=== PATIENT | female | born 1945 | race African-American/Black ===

== ENCOUNTER 2016-11-11 16:35 | Inpatient (IN) ==
[2016-11-11 17:07] LABS: Basophils # 0.1 10*3/uL (0.0-0.2); Basophils % 0.8 % (0.0-0.8); Eosinophils # 0.1 10*3/uL (0.0-0.87); Eosinophils % 0.5 % (0.00-10.9); Hematocrit 44.4 VOL% (35.7-47.0); Hemoglobin 14.5 GM/DL (12.0-16.0); Immature Granulocytes % 0.2 %; Immature Granulocytes Absolute 0.02 #; Lymphocytes # 1.9 10*3/uL (1.4-4.0); Lymphocytes % 20.8 % (21.3-54.2); Mean Corpuscular HGB Conc 32.7 GM/DL (32-36); Mean Corpuscular Hemoglobin 26 PG (27-34); Mean Corpuscular Volume 80.4 FL (87-102); Mean Platelet Volume 10.9 FL (9.6-12.0); Monocytes # 0.9 10*3/uL (0.11-0.8); Monocytes % 9.7 % (1.7-12.7); Neutrophils # 6.2 10*3/uL (1.4-7.4); Platelet Count 289 T/CUMM (130-400); Red Blood Count 5.52 MC/CUMM (3.8-5.5); Red Cell Distribution Width 13.4 % (9.3-17.3); White Blood Count 9.1 T/CUMM (4-12)
[2016-11-11 17:23] LABS: Lactic Acid 1.2 MMOL/L (0.4-2.0)
[2016-11-11 17:24] LABS: Albumin 3.7 G/DL (3.4-5.0); Bilirubin,Total 1.3 MG/DL (0.2-1.0); Calcium 9.2 MG/DL (8.5-10.1); Magnesium 2.1 MG/DL (1.8-2.4); Osmolality,Calculated 272.7 MOS/KG (273-304); Potassium 3.4 MMOL/L (3.5-5.1)
[2016-11-11] MEDS ORDERED: SODIUM CHLORIDE 0.9% 1,000 ML IV STA (17:44)
[2016-11-11] MEDS ORDERED: HYDROCORTISONE 100 MG VIAL IV STA (17:50)
--- NOTE | 2016-11-11 18:00 | XRay Report ---
History: Shortness of breath and fever Date: 11/11/2016 Study: Chest x-ray AP portable Comparison exam: Chest x-ray July 15, 2016 There is stable mild cardiomegaly. The mediastinal contour is unchanged. The pulmonary vasculature is not engorged. There is some mild atelectasis/infiltrate in the left lower lobe. There is a small left pleural effusion. The lungs are generally clear. Osseous structures are unchanged. Impression: Mild left lower lobe atelectasis/infiltrate. Consider pneumonia. PROCEDURE INTERPRETED AT [facility] DEPARTMENT OF RADIOLOGY Final Report Signed by: Dr. Tamica Ag
--- NOTE | 2016-11-11 18:07 | Emergency Department Note ---
Alberto Mancia Hilary, am scribing for, and in the presence of, Wang Mitchell MD 17: 57. Paula Mancia James D, MD, personally performed the services described in this documentation, ascribed by Kimberley Dominguez in my presence, and it is both accurate and complete [id number] . Arrival - Arrival Chief Complaint: Fever Stated Complaint: fever, talking out head, ED Nursing Triage Note: Pt's family reports pt has been running a fever and confusion since yesterday. Pt stepped on nail Wednesday afternoon with her right foot. Mode of Arrival: Wheelchair Limitations: No Limitations Source: Patient, RN Notes Reviewed - History of Present Illness HPI Narrative: Pt is a 71 y/o black female presenting to the ED with c/o fever and confusion which onset yesterday. Pts family is in the room and states she stepped on a nail and got a tetanus shot yesterday. 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 No other complains or problems stated in the ED. Onset (ago): day(s) (1) Allergies/Adverse Reactions: Allergies Allergy/AdvReac Type Severity Reaction Status Date / Time aspirin AdvReac Palpitation Verified 11/11/16 16:47 s Review of System - Review of System 12 point system: reviewed and no additional remarkable complaints except as stated - Review of System Constitutional: Present: fever Cardiovascular: Absent: chest pain Gastrointestinal: Absent: abdominal pain Genitourinary female: Absent: dysuria Neurological: Present: confusion. Absent: headache Medical,Surgical,& Family Hx - Medical History Cardio: History of: Hypertension Endocrine: History of: Thyroid Disorder, Endocrine Problems (jorge's disease) - Social History Smoking Status: Former smoker Exam Physical Examination: GENERAL: This is a well-nourished, well-developed female in no apparent distress. VITAL SIGNS: Temperature: 101.1 Pulse: 102 Respiratory: 20 Blood Pressure: 83 /34 O2Sat: 96 HEENT: Head is normocephalic and atraumatic. Pupils are equally round and reactive to light. Extraocular movement are intact. Oropharynx is benign with moist mucous membranes. Arcus Senilis bilaterally NECK: Neck is soft and supple without tenderness. There are no masses. There is no lymphadenopathy. LUNGS: Lungs are clear to auscultation bilaterally. Chest rises symmetrically. There is no chest wall tenderness. CV: Heart is regular rate and rhythm without murmurs, rubs, or gallops. ABDOMEN: Abdomen is soft, non-tender to palpation. There are no abnormal masses palpated. There is no organomegaly. Bowel sounds are present and active. SKIN: Skin is warm and dry. No rash. EXTREMITIES: Patient has full range of motion without tenderness. There is no pedal edema. NEUROLOGIC: Awake, alert, and oriented x4. Cranial nerves II through XII are grossly intact. There are no motorsensory deficits. PSYCHIATRIC: Normal affect. Normal mood. Vital Signs: Vital Signs Temperature 99.0 F 11/11/16 17:37 Pulse Rate 82 11/11/16 17:37 Respiratory Rate 20 11/11/16 17:37 Blood Pressure 54/42 11/11/16 17:37 O2 Sat by Pulse Oximetry 96 11/11/16 17:37 Results - Labs CBC & BMP: 11/11/16 16:50 11/11/16 16:50 Lab Results: I have reviewed the patients labs Labs: Laboratory Tests 11/11/16 11/11/16 16:50 16:50 WBC 9.1 RBC 5.52 H Hgb 14.5 Hct 44.4 MCV 80.4 L MCH 26 L Lymph % (Auto) 20.8 L [place] # (Auto) 0.9 H Potassium 3.4 L Calculated Osmolality 272.7 L Total Bilirubin 1.30 H ALT 9 L C-Reactive Protein 6.46 H - Diagnostic Findings Procedure: Chest x-ray: image reviewed by me (No infiltrates, no pleural effusions), CT: image reviewed by me (CT head: No acute intracranial lesion or hemorrhage.) Disposition Clinical Impression: Sepsis, Addisons disease, Hypotension, Headache Case discussed with: patient Condition: Stable Time of Disposition: 18:09
[2016-11-11] MEDS ORDERED: cefTRIAXone 1,000 MG in SODIUM CHLORIDE 0.9% 100 ML IV STA (18:09)
[2016-11-11] MEDS ORDERED: ACETAMINOPHEN 500 MG TABLET PO STA (18:10)
[2016-11-11] MEDS ORDERED: HYDROCORTISONE 100 MG VIAL ONE (18:15)
[2016-11-11 18:16] LABS: Sedimentation Rate-Westergren 23 MM/HR (0-30)
--- NOTE | 2016-11-11 18:34 | CT Report ---
History: Acute mental status changes. Fever. Confusion Date: 11/11/2016 Study: CT head without contrast Comparison exam: CT head April 19, [address] sections were obtained through the head without IV contrast. This CT exam was performed using one or more the following dose reduction techniques: Automated exposure control, adjustment of the MA and/or KV according to patient size, or use of iterative reconstruction technique. The ventricles are midline in position without evidence of hydrocephalus. There is no mass or parenchymal hemorrhage. There is no gross CT evidence of acute cortical stroke. There is no extra-axial hematoma. There is no acute abnormality of the calvarium. The partially visualized mastoid air cells and paranasal sinuses are generally clear. There is mild distal carotid artery calcification. Impression: No acute intracranial process compared to the previous study. PROCEDURE INTERPRETED AT [facility] DEPARTMENT OF RADIOLOGY Final Report Signed by: Dr. Tamica Ag
[2016-11-11] MEDS ORDERED: ONDANSETRON 4 MG/2 ML VIAL IV PRN (18:50)
[2016-11-11] MEDS ORDERED: ACETAMINOPHEN 500 MG TABLET ONE (18:50)
[2016-11-11] MEDS ORDERED: ACETAMINOPHEN 325 MG TABLET PO PRN (18:50)
[2016-11-11] MEDS ORDERED: cefTRIAXone 1,000 MG VIAL ONE (18:50)
--- NOTE | 2016-11-11 18:55 | Hospitalist History & Physical ---
Assessment and Plan - Time spent with patient Time spent with patient: Greater than 30 minutes (1) Pneumonia Status: Acute Assessment and plan: CXR reveals infiltrates in left lower lobe. Rocephin IV. Current Visit: Yes (2) Addisons disease Status: Acute Current Visit: Yes (3) Hypotension Status: Acute Assessment and plan: IV fluids in ED. Patient responded well. Will admit patient to med/surg floor. Hold antihypertensives. Current Visit: Yes History of Present Illness Chief complaint: Fever History of present illness: Ms. Jiménez is a 71 year old female with a history significant for Ashland's disease, emphysema, hypertension who presents to the ED with fever and decreased appetite x 2 days. Patient reports that she stepped on a rusted nail Wednesday and received a tetanus shot on Wednesday when she started feeling "bad". She is extremely drowsy, has a decreased appetite and thirst, and has been "talking out of her head" per the family at bedside. Patient states that she is cold and can't seem to get warm. She has had a fever since yesterday. Her says that he has been "bathing her in rubbing alcohol" to reduce the fever. On admission, her temp was 101 and she was hypotensive with her pressure 54-83/34-42. She was given Tylenol 1000mg x2, rocephin 1g and a liter of IVF in the ER. On exam, the patient was still cold, but had responded well to the tylenol and IVF. She denies pain, headache, blurry vision, chest pain, abdominal pain, syncope. She will be admitted to the hospital medicine service for further evaluation and treatment. She is a full code. Case has been discussed with Dr. Vargas. Allergies Allergy/AdvReac Type Severity Reaction Status Date / Time aspirin AdvReac Palpitation Verified 11/11/16 16:47 s Medical,Surgical,& Family Hx - Medical History Cardio: History of: Hypertension Endocrine: History of: Thyroid Disorder, Endocrine Problems (jorge's disease) - Social History Smoking Status: Former smoker Frequency of Alcohol Use: Rarely Type of Drug Use: None Marital Status: Lives With:: Spouse Functional capacity: independent ambulation - Constitutional Constitutional: Present: chills, daytime sleepiness, fever(s), weakness. Absent : headache(s) - EENT Eyes: Absent: blurry vision, loss of vision Ears: Absent: decreased hearing, ear pain Nose, mouth and throat: Absent: headache(s), neck mass - Cardiovascular Cardiovascular: Absent: chest pain at rest, chest pain with activity, dyspnea, edema - Respiratory Respiratory: Present: wheezing. Absent: cough, dyspnea - Gastrointestinal Gastrointestinal: Absent: abdominal pain, diarrhea, nausea, vomiting - Genitourinary Genitourinary: Absent: difficulty urinating, flank pain - Musculoskeletal Musculoskeletal: Absent: arthralgias, back pain - Neurological Neurological: Absent: abnormal gait, abnormal speech, numbness - Psychiatric Psychiatric: Absent: anxiety, depression - Endocrine Endocrine: Present: cold intolerance, fatigue - Hematologic/Lymphatic Hematologic/Lymphatic: Absent: easy bleeding, easy bruising Exam - Constitutional Vitals: Period Temp Pulse Resp BP Sys/Hernández Pulse Ox Last 24 Hr 99.0 F-101.1 F 82-102 20-20 54-83/34-42 96-96 Exam: General appearance: overweight, no acute distress - Head Head exam: Present: normocephalic, atraumatic - Eye Eye exam: Present: EOMI. Absent: conjunctival injection, nystagmus Pupils: Present: SHARIF, normal accommodation - ENT ENT exam: Present: normal exam, normal external ear exam - Neck Neck exam: Present: normal inspection. Absent: lymphadenopathy, tenderness, thyromegaly - Respiratory Respiratory exam: Present: decreased breath sounds, wheezes. Absent: rales, rhonchi - Cardiovascular Cardiovascular exam: Present: regular rate and rhythm. Absent: carotid bruit, gallop, rubs - GI/Abdominal GI/Abdominal exam: Present: normal bowel sounds. Absent: ascites, distended, mass - Extremities Exam Extremities exam: Present: normal inspection, normal capillary refill. Absent: edema - Back Exam Back exam: Absent: CVA tenderness (L), CVA tenderness (R) - Neurological Exam Neurological exam: Present: alert, lethargic - Psychiatric Psychiatric exam: Present: normal affect, normal mood - Skin Skin exam: Present: normal color, warm, dry Results - Labs CBC & BMP: 11/11/16 16:50 11/11/16 16:50 Lab Results: I have reviewed the past 24 hour labs
[2016-11-11] MEDS ORDERED: ALBUTEROL 2.5 MG/3 ML NEB RESP TX PRN (18:57)
[2016-11-11 19:03] LABS: Apearance,Urine CLEAR (Clear); Bilirubin,Urine Negative (Negative); Blood, Urine Negative (Negative); Glucose,Urine (UA) Negative (Negative); Hyaline Casts,Urine 3 /LPF (0-3); Ketones,Urine Negative (Negative); Mucus,Urine Occasional /LPF (Occasional); Nitrite,Urine Negative (Negative); Protein,Urine Negative; RBC,Urine 2 /HPF (0-4); Squamous Epithelial Cell,Urine Occasional /HPF (0-10); Urine Color Yellow (Yellow); Urine Urobilinogen < 2.0 EU/DL (0.2-1.0); WBC,Urine 1 /HPF (0-6)
[2016-11-11] MEDS ORDERED: AZITHROMYCIN 500 MG VIAL IV ONE (21:21)
[2016-11-11] MEDS: ENOXAPARIN 40 MG/0.4 ML SYRINGE SUBCUT SCH (21:44)
[2016-11-11] MEDS: AZITHROMYCIN INJ 500 MG in SODIUM CHLORIDE 0.9% 250 ML IV SCH (21:45)
[2016-11-11] MEDS: SODIUM CHLORIDE 0.9% 1,000 ML IV SCH (21:45)
[2016-11-11] MEDS: ALBUTEROL/IPRATROPIUM 3 ML NEB RESP TX SCH (21:58)
[2016-11-11] MEDS ORDERED: POTASSIUM CHLORIDE 20 MEQ TABLET PO ONE (22:00)
[2016-11-11] MEDS ORDERED: ONDANSETRON 4 MG/2 ML VIAL ONE (23:19)
[2016-11-12] MEDS: ALBUTEROL/IPRATROPIUM 3 ML NEB RESP TX SCH ×4 (01:12→20:28)
[2016-11-12 04:25] LABS: Basophils % 0.4 % (0.0-0.8); Hematocrit 34.7 VOL% (35.7-47.0); Hemoglobin 11.1 GM/DL (12.0-16.0); Immature Granulocytes % 0.3 %; Immature Granulocytes Absolute 0.02 #; Lymphocytes # 1.2 10*3/uL (1.4-4.0); Lymphocytes % 14.8 % (21.3-54.2); Mean Corpuscular Hemoglobin 26 PG (27-34); Mean Corpuscular Volume 82.6 FL (87-102); Mean Platelet Volume 11.3 FL (9.6-12.0); Monocytes # 0.5 10*3/uL (0.11-0.8); Monocytes % 6.7 % (1.7-12.7); Neutrophils % 77.8 % (38.7-73.9); Platelet Count 203 T/CUMM (130-400); Red Cell Distribution Width 13.7 % (9.3-17.3); White Blood Count 7.8 T/CUMM (4-12)
[2016-11-12] MEDS: SODIUM CHLORIDE 0.9% 1,000 ML IV SCH (05:01)
[2016-11-12 07:01] LABS: Calcium 6.2 MG/DL (8.5-10.1); Osmolality,Calculated 288.4 MOS/KG (273-304); Potassium 2.6 MMOL/L (3.5-5.1)
[2016-11-12] MEDS: PANTOPRAZOLE 40 MG TABLET PO SCH (09:24)
--- NOTE | 2016-11-12 09:26 | Hospitalist Progress Note ---
Assessment and Plan (1) Addisons disease Status: Chronic Assessment and plan: Patient apparently had an acute febrile illness with radiographic evidence suggesting early pneumonitis. The remainder of her symptoms are strongly suggestive of inadequate adrenal reserve. This impression is reinforce by rapid induction of electrode abnormalities associated with normal saline volume administration. We will go ahead with the initiation of hydrocortisone, potassium replacement, reduction in chloride load, and hopefully review of her home medications will be available later today. Current Visit: Yes (2) Pneumonia Status: Acute Assessment and plan: Apparent new left lower lobe infiltrate. Current Visit: Yes Hospitalist: Subjective Interval history: 71-year-old female who several days ago stepped on a nail. She received a tetanus shot the next day she noticed high fever a lot of pain at the injection site in her right shoulder and became progressively weaker and more confused. She was found to be hypotensive by her family. She carries a diagnosis of Choudrant's disease. Home medications are currently unavailable for review. She received normal saline rehydration in the emergency department developing a low calcium level and a decrease in potassium in the setting of hypernatremia and low normal CO2 content. Subsequent to admission her vital signs been stable and she has been afebrile she feels much better today. She has no recent complaints relative to the foot injury has had no cough or sputum production. Her admitting chest x-ray shows haziness in the area of the left diaphragm and she has been initiated on antibiotics for community-acquired pneumonia. Exam - Constitutional Vitals: Period Temp Pulse Resp BP Sys/Hernández Pulse Ox Last 24 Hr 98.7 F-99.8 F 70-91 14-20 97-135/72-95 2-100 General appearance: normal weight - Respiratory Respiratory exam: Present: clear to auscultation bilaterally. Absent: rales, rhonchi, wheezes - Cardiovascular Cardiovascular exam: Present: regular rate and rhythm - GI/Abdominal GI/Abdominal exam: Present: normal bowel sounds. Absent: distended, tenderness - Extremities Exam Extremities exam: Absent: edema - Neurological Exam Neurological exam: Present: alert, oriented X3 Results - Labs CBC & BMP: 11/12/16 Unknown 11/12/16 04:00 Labs: Calcium level 6.2 Urinalysis negative - Diagnostic Findings Procedure: Chest x-ray: image reviewed by me (Loss of detail left hemidiaphragm soft infiltrate)
[2016-11-12] MEDS: HYDROCORTISONE 100 MG VIAL IV SCH ×2 (10:59→17:18)
[2016-11-12] MEDS: POTASSIUM CHLORIDE INJ 20 MEQ in LACTATED RINGERS 1,000 ML IV SCH (13:37)
[2016-11-12] MEDS: BECLOMETHASONE 40 MCG/PUFF INHALER 8.7 GM INH SCH ×2 (14:52→21:46)
[2016-11-12] MEDS: POTASSIUM CHLORIDE 20 MEQ/15 ML UDCUP PO SCH ×2 (14:52→21:46)
[2016-11-12] MEDS: CHOLECALCIFEROL 1,000 UNIT TABLET PO SCH (14:53)
[2016-11-12] MEDS: ATENOLOL 25 MG TABLET PO SCH (14:53)
[2016-11-12] MEDS: CALCIUM (CARBONATE)/VITAMIN D 600 MG-400 UNIT TABLET PO SCH (14:53)
[2016-11-12] MEDS ORDERED: ALBUTEROL 2.5 MG/3 ML NEB RESP TX PRN (15:00)
[2016-11-12] MEDS: cefTRIAXone 1,000 MG in SODIUM CHLORIDE 0.9% 100 ML IV SCH (20:17)
[2016-11-12] MEDS: AZITHROMYCIN INJ 500 MG in SODIUM CHLORIDE 0.9% 250 ML IV SCH (21:44)
[2016-11-12] MEDS: MONTELUKAST 10 MG TABLET PO SCH (21:45)
[2016-11-12] MEDS: LOVASTATIN 20 MG TABLET PO SCH (21:45)
[2016-11-12] MEDS: ENOXAPARIN 40 MG/0.4 ML SYRINGE SUBCUT SCH (21:46)
[2016-11-13] MEDS: ALBUTEROL/IPRATROPIUM 3 ML NEB RESP TX SCH ×4 (00:57→19:45)
[2016-11-13] MEDS: HYDROCORTISONE 100 MG VIAL IV SCH ×3 (01:45→17:53)
[2016-11-13] MEDS: POTASSIUM CHLORIDE INJ 20 MEQ in LACTATED RINGERS 1,000 ML IV SCH (04:28)
[2016-11-13 05:04] LABS: Calcium 8.6 MG/DL (8.5-10.1); Magnesium 2.2 MG/DL (1.8-2.4); Osmolality,Calculated 290.4 MOS/KG (273-304); Potassium 4.6 MMOL/L (3.5-5.1)
[2016-11-13] MEDS: LEVOTHYROXINE 137 MCG TABLET PO SCH (07:16)
--- NOTE | 2016-11-13 07:23 | XRay Report ---
XR chest 1V portable Indication: Fever and pneumonia. Comparison: Chest x-ray 11/11/2016 Technique: Portable AP chest was performed. Findings: The heart size appears borderline, stable. The mediastinal contour and hilar structures demonstrate no significant abnormalities. Lungs are clear. Bones and soft tissues demonstrate no evidence of acute pathology. Impression: 1. No evidence of acute pathology. 11/13/2016 7:19 AM PROCEDURE INTERPRETED AT [facility] DEPARTMENT OF RADIOLOGY Final Report Signed by: Dr. Juan Manuel Rothman
[2016-11-13] MEDS: CHOLECALCIFEROL 1,000 UNIT TABLET PO SCH (09:18)
[2016-11-13] MEDS: CALCIUM (CARBONATE)/VITAMIN D 600 MG-400 UNIT TABLET PO SCH (09:19)
[2016-11-13] MEDS: PANTOPRAZOLE 40 MG TABLET PO SCH (09:19)
[2016-11-13] MEDS: ATENOLOL 25 MG TABLET PO SCH (09:19)
[2016-11-13] MEDS: MOMETASONE 50 MCG NASAL SPRAY 17 GM BOTTLE BOTH NARES SCH (09:20)
[2016-11-13] MEDS: POTASSIUM CHLORIDE 20 MEQ/15 ML UDCUP PO SCH (09:20)
[2016-11-13] MEDS: BECLOMETHASONE 40 MCG/PUFF INHALER 8.7 GM INH SCH ×2 (09:20→20:22)
--- NOTE | 2016-11-13 11:20 | Hospitalist Progress Note ---
Assessment and Plan (1) Hypotension Status: Acute Assessment and plan: Blood pressure is improved since admission since IV start was started and given IV fluid. She has dizziness patient more like a vertigo will check orthostatic blood pressure Current Visit: Yes (2) Pneumonia Status: Acute Assessment and plan: Continue antibiotic patient is afebrile and has normal mobility count Current Visit: Yes (3) Vertigo Status: Acute Assessment and plan: For this Patient is a positional vertigo . Will watch the symptoms and check ear canal he had a scope available Current Visit: Yes (4) Addisons disease Status: Chronic Assessment and plan: On steroids and levothyroxine will soon change to her p.o. home regimen Current Visit: Yes (5) Anemia Status: Acute Assessment and plan: Noted hemoglobin hematocrit down from admission. I am not sure it is because of hydration I will check repeat labs in the morning check a stool for occult blood Current Visit: Yes Hospitalist: Subjective Interval history: Ms. Jiménez is a 71 year old female with a history significant for Laureano's disease, emphysema and hypertension. She stepped on nail on 11/09/2016 and received tetanus shot on the next day . On 11/11/2016 she was reported to have fever altered mental status and she was hypotensive. She was admitted and started on antibiotics. She had not taken her oral steroid on the day of admission. She was given on IV fluid in the ER. She was started on maintenance fluid and also on IV hydrocortisone. Blood pressures improved. She has been reported coughing. She also feels dizzy on movement and standing which she described as rotating movement of room. No ear pain or hearing loss reported no nausea vomiting. She has been afebrile Exam - Constitutional Vitals: Period Temp Pulse Resp BP Sys/Hernández Pulse Ox Last 24 Hr 97.2 F-99.6 F 59-93 17-20 96-122/63-87 92-100 General appearance: no acute distress - Respiratory Respiratory exam: Present: clear to auscultation bilaterally. Absent: rales, rhonchi - Cardiovascular Cardiovascular exam: Present: regular rate and rhythm. Absent: tachycardia - GI/Abdominal GI/Abdominal exam: Present: normal bowel sounds, soft. Absent: distended, tenderness - Extremities Exam Extremities exam: Present: normal inspection. Absent: edema - Neurological Exam Neurological exam: Present: alert, oriented X3 Results - Labs CBC & BMP: 04/27/17 Unknown 11/13/16 03:44 Lab Results: I have reviewed the past 24 hour labs
[2016-11-13] MEDS: MONTELUKAST 10 MG TABLET PO SCH (20:20)
[2016-11-13] MEDS: LOVASTATIN 20 MG TABLET PO SCH (20:20)
[2016-11-13] MEDS: ENOXAPARIN 40 MG/0.4 ML SYRINGE SUBCUT SCH (20:22)
[2016-11-13] MEDS: cefTRIAXone 1,000 MG in SODIUM CHLORIDE 0.9% 100 ML IV SCH (20:22)
[2016-11-13] MEDS ORDERED: AZITHROMYCIN 250 MG TABLET PO SCH (21:00)
[2016-11-14] MEDS: ALBUTEROL/IPRATROPIUM 3 ML NEB RESP TX SCH ×4 (00:30→19:10)
[2016-11-14] MEDS: HYDROCORTISONE 100 MG VIAL IV SCH ×2 (01:36→09:38)
[2016-11-14 05:50] LABS: Basophils % 0.1 % (0.0-0.8); Eosinophils % 0.1 % (0.00-10.9); Hematocrit 35.8 VOL% (35.7-47.0); Hemoglobin 11.5 GM/DL (12.0-16.0); Immature Granulocytes % 1.9 %; Immature Granulocytes Absolute 0.15 #; Lymphocytes % 11.9 % (21.3-54.2); Mean Corpuscular HGB Conc 32.1 GM/DL (32-36); Mean Corpuscular Hemoglobin 26 PG (27-34); Mean Corpuscular Volume 81.4 FL (87-102); Mean Platelet Volume 10.8 FL (9.6-12.0); Monocytes # 0.4 10*3/uL (0.11-0.8); Neutrophils # 6.4 10*3/uL (1.4-7.4); Platelet Count 249 T/CUMM (130-400); Red Cell Distribution Width 14.2 % (9.3-17.3)
[2016-11-14] MEDS: LEVOTHYROXINE 137 MCG TABLET PO SCH (06:05)
[2016-11-14 06:13] LABS: Calcium 9.2 MG/DL (8.5-10.1); Osmolality,Calculated 288.6 MOS/KG (273-304); Potassium 4.3 MMOL/L (3.5-5.1)
[2016-11-14] MEDS: POTASSIUM CHLORIDE INJ 20 MEQ in LACTATED RINGERS 1,000 ML IV SCH ×2 (06:48→21:00)
[2016-11-14] MEDS: CALCIUM (CARBONATE)/VITAMIN D 600 MG-400 UNIT TABLET PO SCH (09:35)
[2016-11-14] MEDS: ATENOLOL 25 MG TABLET PO SCH (09:36)
[2016-11-14] MEDS: BECLOMETHASONE 40 MCG/PUFF INHALER 8.7 GM INH SCH ×2 (09:36→20:35)
[2016-11-14] MEDS: PANTOPRAZOLE 40 MG TABLET PO SCH (09:36)
[2016-11-14] MEDS: MOMETASONE 50 MCG NASAL SPRAY 17 GM BOTTLE BOTH NARES SCH (09:37)
[2016-11-14] MEDS: CHOLECALCIFEROL 1,000 UNIT TABLET PO SCH (09:37)
--- NOTE | 2016-11-14 11:05 | Hospitalist Progress Note ---
Assessment and Plan (1) Hypotension Status: Acute Assessment and plan: Resolved infected blood pressure is elevated will continue follow Current Visit: Yes (2) Pneumonia Status: Acute Assessment and plan: patient is afebrile and has normal white count but still has a cough. I will change her IV antibiotics to p.o. Levaquin Current Visit: Yes (3) Vertigo Status: Acute Assessment and plan: What seems like patient has a positional vertigo and exam noted sediment in the ear canal will give Cerumenex eardrops Current Visit: Yes (4) Addisons disease Status: Chronic Assessment and plan: On steroids and levothyroxine . I will change the steroid to p.o. home dose and watch her blood pressure Current Visit: Yes (5) Anemia Status: Acute Assessment and plan: Her hemoglobin hematocrit stable or better from 11/12. Although it is down from 1 from admission I am not sure. Patient was hypotensive may be hemoconcentrated will keep follow stool Hemoccult was ordered Current Visit: Yes Hospitalist: Subjective Interval history: Ms. Jiménez is a 71 year old female with a history significant for [place]'s disease, emphysema and hypertension. She stepped on nail on 11/09/2016 and received tetanus shot on the next day . On 11/11/2016 she was reported to have fever altered mental status and she was hypotensive. She was admitted and started on antibiotics. She had not taken her oral steroid on the day of admission. She was given on IV fluid in the ER. She was started on maintenance fluid and also on IV hydrocortisone. Blood pressures improved. She has been reported coughing. Afebrile. He still feels dizzy like rotational movement of the room when she turned her head. Still no ear pain nausea vomiting Exam - Constitutional Vitals: Period Temp Pulse Resp BP Sys/Hernández Pulse Ox Last 24 Hr 97.2 F-98.9 F 59-82 16-20 117-175/74-100 18-100 General appearance: no acute distress - Respiratory Respiratory exam: Present: clear to auscultation bilaterally. Absent: rales, rhonchi - Cardiovascular Cardiovascular exam: Present: regular rate and rhythm. Absent: tachycardia - GI/Abdominal GI/Abdominal exam: Present: normal bowel sounds, soft. Absent: tenderness - Extremities Exam Extremities exam: Present: normal inspection. Absent: edema - Neurological Exam Neurological exam: Present: alert, oriented X3 Results - Labs CBC & BMP: 11/14/16 05:29 11/14/16 05:29 Lab Results: I have reviewed the past 24 hour labs
[2016-11-14] MEDS: HYDROCORTISONE 10 MG TABLET PO SCH (13:33)
[2016-11-14] MEDS: LOVASTATIN 20 MG TABLET PO SCH (20:34)
[2016-11-14] MEDS: MONTELUKAST 10 MG TABLET PO SCH (20:34)
[2016-11-14] MEDS: CARBAMIDE PEROXIDE 6.5% OTIC SOLN 15 ML BOTTLE BOTH EARS SCH (20:35)
[2016-11-14] MEDS: ENOXAPARIN 40 MG/0.4 ML SYRINGE SUBCUT SCH (20:35)
[2016-11-15] MEDS: ALBUTEROL/IPRATROPIUM 3 ML NEB RESP TX SCH ×4 (00:43→19:20)
[2016-11-15 04:36] LABS: Basophils % 0.2 % (0.0-0.8); Eosinophils % 0.4 % (0.00-10.9); Hematocrit 34.1 VOL% (35.7-47.0); Hemoglobin 10.7 GM/DL (12.0-16.0); Immature Granulocytes % 1.5 %; Immature Granulocytes Absolute 0.12 #; Lymphocytes # 2.1 10*3/uL (1.4-4.0); Mean Corpuscular HGB Conc 31.4 GM/DL (32-36); Mean Corpuscular Hemoglobin 26 PG (27-34); Mean Corpuscular Volume 82.6 FL (87-102); Mean Platelet Volume 11.5 FL (9.6-12.0); Monocytes # 0.7 10*3/uL (0.11-0.8); Monocytes % 8.6 % (1.7-12.7); NRBC # 0.02 10*3/uL; Neutrophils # 5.2 10*3/uL (1.4-7.4); Neutrophils % 63.3 % (38.7-73.9); Platelet Count 243 T/CUMM (130-400); Red Blood Count 4.13 MC/CUMM (3.8-5.5); White Blood Count 8.2 T/CUMM (4-12)
[2016-11-15 05:05] LABS: Calcium 8.6 MG/DL (8.5-10.1); Osmolality,Calculated 285.6 MOS/KG (273-304); Potassium 4.2 MMOL/L (3.5-5.1)
[2016-11-15] MEDS: LEVOTHYROXINE 137 MCG TABLET PO SCH (06:00)
[2016-11-15] MEDS: CALCIUM (CARBONATE)/VITAMIN D 600 MG-400 UNIT TABLET PO SCH (09:12)
[2016-11-15] MEDS: HYDROCORTISONE 10 MG TABLET PO SCH (09:12)
[2016-11-15] MEDS: ATENOLOL 25 MG TABLET PO SCH (09:12)
[2016-11-15] MEDS: CHOLECALCIFEROL 1,000 UNIT TABLET PO SCH (09:13)
[2016-11-15] MEDS: MOMETASONE 50 MCG NASAL SPRAY 17 GM BOTTLE BOTH NARES SCH (09:13)
[2016-11-15] MEDS: CARBAMIDE PEROXIDE 6.5% OTIC SOLN 15 ML BOTTLE BOTH EARS SCH ×2 (09:13→20:46)
[2016-11-15] MEDS: PANTOPRAZOLE 40 MG TABLET PO SCH (09:13)
[2016-11-15] MEDS: BECLOMETHASONE 40 MCG/PUFF INHALER 8.7 GM INH SCH ×2 (09:13→20:44)
--- NOTE | 2016-11-15 09:39 | Hospitalist Progress Note ---
Assessment and Plan (1) Pneumonia Status: Acute Assessment and plan: patient is afebrile still coughing some productive sputum. Will continue Levaquin WBC count is normal. I offered patient a discharge. She says she still feels not strong enough and requested to stay 1 more day Current Visit: Yes (2) Hypotension Status: Acute Assessment and plan: Resolved . Not orthostatic clinically her blood pressure is in fact elevated will keep follow Current Visit: Yes (3) Addisons disease Status: Chronic Assessment and plan: On steroids and levothyroxine . I had switched to a steroid to her p.o. home dose and she seemed to be okay with stable hemodynamic Current Visit: Yes (4) Vertigo Status: Acute Assessment and plan: Improved Current Visit: Yes (5) Anemia Status: Acute Assessment and plan: Noted hemoglobin hematocrit is fluctuating we will check another level tomorrow. Rounding hospitalist follow labs Current Visit: Yes Hospitalist: Subjective Interval history: Ms. Jiménez is a 71 year old female with a history significant for Laureano's disease, emphysema and hypertension. She stepped on nail on 11/09/2016 and received tetanus shot on the next day . On 11/11/2016 she was reported to have fever altered mental status and she was hypotensive. She was admitted and started on antibiotics. She had not taken her oral steroid on the day of admission. She was given on IV fluid in the ER. She was started on maintenance fluid and also on IV hydrocortisone. She complained of dizziness more like a vertigo noted to have cerumen blocking the ear canal and given Cerumenex eardrops no associated nausea vomiting or focal weakness. She reported dizziness has improved. Still has coughing no fever feel just generally not so strong Exam - Constitutional Vitals: Period Temp Pulse Resp BP Sys/Hernández Pulse Ox Last 24 Hr 97.1 F-98.6 F 54-88 16-22 126-162/69-93 95-100 General appearance: no acute distress - Respiratory Respiratory exam: Present: clear to auscultation bilaterally. Absent: rales, rhonchi - Cardiovascular Cardiovascular exam: Present: regular rate and rhythm. Absent: tachycardia - GI/Abdominal GI/Abdominal exam: Present: normal bowel sounds, soft. Absent: distended, tenderness - Extremities Exam Extremities exam: Present: normal inspection. Absent: edema - Neurological Exam Neurological exam: Present: alert, oriented X3 Results - Labs CBC & BMP: 11/15/16 03:33 11/15/16 03:33 Lab Results: I have reviewed the past 24 hour labs
[2016-11-15] MEDS: POTASSIUM CHLORIDE INJ 20 MEQ in LACTATED RINGERS 1,000 ML IV SCH ×2 (09:56→15:25)
[2016-11-15] MEDS: MONTELUKAST 10 MG TABLET PO SCH (20:44)
[2016-11-15] MEDS: LOVASTATIN 20 MG TABLET PO SCH (20:44)
[2016-11-15] MEDS: ENOXAPARIN 40 MG/0.4 ML SYRINGE SUBCUT SCH (20:46)
[2016-11-16] MEDS: ALBUTEROL/IPRATROPIUM 3 ML NEB RESP TX SCH ×2 (00:45→07:00)
[2016-11-16] MEDS: POTASSIUM CHLORIDE INJ 20 MEQ in LACTATED RINGERS 1,000 ML IV SCH (01:34)
[2016-11-16] MEDS: LEVOTHYROXINE 137 MCG TABLET PO SCH ×2 (05:56→07:12)
[2016-11-16 06:36] LABS: Basophils % 0.6 % (0.0-0.8); Eosinophils # 0.2 10*3/uL (0.0-0.87); Eosinophils % 3.2 % (0.00-10.9); Hematocrit 35.2 VOL% (35.7-47.0); Hemoglobin 11.3 GM/DL (12.0-16.0); Immature Granulocytes % 1.1 %; Immature Granulocytes Absolute 0.07 #; Lymphocytes # 2.4 10*3/uL (1.4-4.0); Lymphocytes % 37.4 % (21.3-54.2); Mean Corpuscular HGB Conc 32.1 GM/DL (32-36); Mean Corpuscular Hemoglobin 26 PG (27-34); Mean Corpuscular Volume 81.9 FL (87-102); Monocytes # 0.6 10*3/uL (0.11-0.8); Monocytes % 8.9 % (1.7-12.7); NRBC # 0.03 10*3/uL; Neutrophils # 3.2 10*3/uL (1.4-7.4); Neutrophils % 48.8 % (38.7-73.9); Platelet Count 256 T/CUMM (130-400); Red Cell Distribution Width 14.1 % (9.3-17.3); White Blood Count 6.5 T/CUMM (4-12)
[2016-11-16 07:00] LABS: Calcium 8.6 MG/DL (8.5-10.1); Osmolality,Calculated 280.8 MOS/KG (273-304); Potassium 3.8 MMOL/L (3.5-5.1)
[2016-11-16] MEDS: CALCIUM (CARBONATE)/VITAMIN D 600 MG-400 UNIT TABLET PO SCH (08:42)
[2016-11-16] MEDS: PANTOPRAZOLE 40 MG TABLET PO SCH (08:43)
[2016-11-16] MEDS: CHOLECALCIFEROL 1,000 UNIT TABLET PO SCH (08:43)
[2016-11-16] MEDS: ATENOLOL 25 MG TABLET PO SCH (08:43)
[2016-11-16] MEDS: CARBAMIDE PEROXIDE 6.5% OTIC SOLN 15 ML BOTTLE BOTH EARS SCH (08:45)
[2016-11-16] MEDS: BECLOMETHASONE 40 MCG/PUFF INHALER 8.7 GM INH SCH (08:45)
[2016-11-16] MEDS: MOMETASONE 50 MCG NASAL SPRAY 17 GM BOTTLE BOTH NARES SCH (08:46)
[2016-11-16] MEDS: HYDROCORTISONE 10 MG TABLET PO SCH (08:47)
--- NOTE | 2016-11-16 10:17 | Discharge Summary ---
Hospital Course - Hospital Course Hospital Course: Discharge diagnosis: Billings's disease Pneumonia, community-acquired Hypotension on presentation, now resolved Hypertension The patient presented to the hospital for evaluation of fever and hypotension. She had apparently stepped on a nail a couple of days prior to admission, and had received a tetanus injection. She was febrile in the emergency room, and was also noted to be hypotensive. She was given some IV steroids, as it appears that she may have missed a dose or 2 of her home steroid replacement. Chest x-ray showed a left basilar infiltrate or atelectasis. She was given IV antibiotics for that. Gradually, she began to improve. Her chest x-ray cleared. She continued with a cough. She developed some dizziness, which she initially described as vertigo. This improved somewhat with earwax removal. On the day of discharge, she complained of some dizziness. I tilted her myself in the room. Blood pressure seated was 162/110. Blood pressure standing was 156/114. She was mildly symptomatic, and complained of some unsteadiness when she stood. It appears that she is reached maximal hospital benefit, so we will let her go home. She can complete a course of oral antibiotics. Her condition on discharge is fair and improved. Regular diet. Activity as tolerated. Medication reconciliation has been performed. This note was completed using [employer] voice recognition software. There may be clinical quality analyst errors as a result. Discharge Plan - Discharge Data Disposition: Disch To Home/Self Care Condition at Discharge: Stable Discharge Diet: advance to your usual diet Activity: resume usual activities as tolerated Hygiene: no restrictions Weight Bearing at Discharge: full weight bearing Driving: no restrictions - Discharge Medications New Acetaminophen Tab [Tylenol Tab] 650 mg PO Q4H PRN #0 tablet PRN Reason: fever, headache/body aches Hydrocortisone Tab [Cortef Tab] 20 mg PO DAILY tablet Levofloxacin Tab [Levaquin Tab] 500 mg PO DAILY #7 tablet Continue Triamterene/Hctz 37.5-25 Cap [Dyazide] 1 capsule PO DAILY Montelukast Tab [Singulair Tab] 10 mg PO BEDTIME Mometasone 50 Mcg Nasal [place] [Nasonex Nasal [place]] 2 spray BOTH NARES DAILY Lovastatin 40 mg PO BEDTIME Levothyroxine Tab [Synthroid Tab] 68.5 mcg PO DAILY@0700 Hydrocodone/Acetaminophen [Vicodin 5-300 mg Tablet] 1 each PO Q6HR PRN PRN Reason: Pain Cholecalciferol [Vitamin D3] 1,000 mg PO DAILY Calcium (Carb)/Vit D 600-400 [Caltrate 600 + D] 1 tablet PO DAILY Beclomethasone 40 Mcg Inhaler [Qvar 40 Mcg] 2 puffs INH BID Albuterol Inhaler [Proventil Inhaler] 2 puff INH Q4H PRN PRN Reason: Shortness Of Breath/Wheezing Theophylline ER Cap (24 Hr) [Surya-24] 200 mg PO DAILY Hydrocortisone [Cortef Tab] 20 mg PO DAILY Atenolol [Tenormin] 25 mg PO DAILY - Follow Up or Referral - Forms/Instructions Exam - Constitutional Vitals: Period Temp Pulse Resp BP Sys/Hernández Pulse Ox Last 24 Hr 97.3 F-98.5 F 59-78 16-25 122-156/57-92 95-99 Blood pressure did not have significant orthostatic change this morning. Heart is regular with no murmur. Lungs are fairly clear with no rales or wheezes. She is awake and alert. Discharge Results Procedures and tests throughout hospitalization: Pending Orders 11/15/16 11:50 Occult Blood, Stool Labs on day of discharge: Labs from last 24 hours 11/16/16 11/16/16 05:57 05:57 WBC 6.5 RBC 4.30 Hgb 11.3 L Hct 35.2 L MCV 81.9 L MCH 26 L MCHC 32.1 RDW 14.1 Plt Count 256 MPV 11.0 Neut % (Auto) 48.8 Lymph % (Auto) 37.4 Sanders % (Auto) 8.9 Eos % (Auto) 3.2 Baso % (Auto) 0.6 Neut # (Auto) 3.2 Lymph # (Auto) 2.4 Sanders # (Auto) 0.6 Eos # (Auto) 0.2 Baso # (Auto) 0.0 Immature Gran % 1.1 Nucleated RBC % 0.5 Immature Gran # 0.07 Nucleated RBCs # 0.03 Sodium 144 Potassium 3.8 Chloride 107 Carbon Dioxide 30 Anion Gap 10.8 BUN 5 L Creatinine 0.90 GFR Calculation 78 BUN/Creatinine Ratio 5.00 L Glucose 66 L Calculated Osmolality 280.8 Calcium 8.6 DS: Provider Date of admission: 11/11/16 18:28 Primary care physician: . No PCP Attending physician on admission: Nacho Denton MD Discharging clinician: Quoc Elkins MD Expected date of discharge: 11/16/16
[2016-11-16 13:26] VITALS: BP 142/98
== END 2016-11-16 12:00 | disposition home or self-care (01) | DRG 643 ==
LOC: N.ED 16:35 → N.EDINP 18:23 → SUATTDRO 18:28 → N.2E 11-12 07:12
PROVIDERS: ADMIT Internal Medicine Cardiovascular Disease; ATTEND Internal Medicine Geriatric Medicine

== ENCOUNTER 2017-05-22 07:26 | Inpatient (IN) ==
[2017-05-22] MEDS ORDERED: cefTRIAXone 2,000 MG in SODIUM CHLORIDE 0.9% 100 ML IV ONE (07:47)
[2017-05-22] MEDS ORDERED: HYDROCORTISONE 100 MG VIAL IV STA (07:47)
[2017-05-22] MEDS ORDERED: cefTRIAXone 1,000 MG VIAL ONE (07:50)
[2017-05-22] MEDS ORDERED: HYDROCORTISONE 100 MG VIAL ONE (07:50)
[2017-05-22] MEDS ORDERED: cefTRIAXone 2,000 MG in SYRINGE 1 EACH IV ONE (08:00)
[2017-05-22] MEDS ORDERED: ONDANSETRON 4 MG/2 ML VIAL ONE (08:10)
[2017-05-22] MEDS ORDERED: SODIUM CHLORIDE 0.9% 500 ML IV STA (08:10)
[2017-05-22] MEDS ORDERED: ONDANSETRON 4 MG/2 ML VIAL IV STA (08:10)
[2017-05-22 08:20] LABS: Basophils % 0.4 % (0.0-0.8); Eosinophils % 0.4 % (0.00-10.9); Hematocrit 42.7 VOL% (35.7-47.0); Hemoglobin 14.2 GM/DL (12.0-16.0); Immature Granulocytes % 0.5 %; Immature Granulocytes Absolute 0.04 #; Lymphocytes # 1.4 10*3/uL (1.4-4.0); Lymphocytes % 18.6 % (21.3-54.2); Mean Corpuscular HGB Conc 33.3 GM/DL (32-36); Mean Corpuscular Hemoglobin 27 PG (27-34); Mean Corpuscular Volume 80.7 FL (87-102); Mean Platelet Volume 10.9 FL (9.6-12.0); Monocytes # 0.9 10*3/uL (0.11-0.8); Monocytes % 11.8 % (1.7-12.7); Neutrophils # 5.3 10*3/uL (1.4-7.4); Neutrophils % 68.3 % (38.7-73.9); Platelet Count 241 T/CUMM (130-400); Red Blood Count 5.29 MC/CUMM (3.8-5.5); Red Cell Distribution Width 14.6 % (9.3-17.3); White Blood Count 7.7 T/CUMM (4-12)
[2017-05-22 08:35] LABS: Apearance,Urine CLEAR (Clear); Bilirubin,Urine Negative (Negative); Blood, Urine Negative (Negative); Glucose,Urine (UA) 150 mg/dL (Negative); Ketones,Urine Negative (Negative); Mucus,Urine Occasional /LPF (Occasional); Nitrite,Urine Negative (Negative); Protein,Urine Negative; RBC,Urine <1 /HPF (0-4); Squamous Epithelial Cell,Urine Occasional /HPF (0-10); Urine Color Yellow (Yellow); Urine Specific Gravity 1.011 (1.001-1.035); WBC,Urine <1 /HPF (0-6)
[2017-05-22 08:37] LABS: Lactic Acid 2.7 MMOL/L (0.4-2.0)
[2017-05-22 08:54] LABS: Albumin 3.6 G/DL (3.4-5.0); Bilirubin,Total 1.2 MG/DL (0.2-1.0); Calcium 8.9 MG/DL (8.5-10.1); Osmolality,Calculated 277.7 MOS/KG (273-304); Potassium 3.7 MMOL/L (3.5-5.1); Total Protein 6.7 G/DL (6.4-8.3)
[2017-05-22] MEDS ORDERED: SODIUM CHLORIDE 0.9% 2,100 ML IV ONE (12:21)
[2017-05-22] MEDS ORDERED: ALBUTEROL 2.5 MG/3 ML NEB RESP TX PRN ×2 (13:46→23:51)
[2017-05-22] MEDS: PIPERACILLIN/TAZOBACTAM 3,375 MG in SODIUM CHLORIDE 0.9% 100 ML IV SCH ×2 (14:11→23:31)
[2017-05-22] MEDS: HYDROCORTISONE 100 MG VIAL IV SCH ×2 (18:36→23:29)
[2017-05-22] MEDS: VANCOMYCIN INJ 1,000 MG in SODIUM CHLORIDE 0.9% 250 ML IV SCH (18:42)
[2017-05-22] MEDS: ALBUTEROL/IPRATROPIUM 3 ML NEB RESP TX SCH (19:38)
[2017-05-23] MEDS: ALBUTEROL/IPRATROPIUM 3 ML NEB RESP TX SCH ×4 (01:03→20:01)
[2017-05-23] MEDS: LOVASTATIN 20 MG TABLET PO SCH ×2 (01:15→21:25)
[2017-05-23] MEDS: MONTELUKAST 10 MG TABLET PO SCH ×2 (01:15→21:25)
[2017-05-23] MEDS: BENZONATATE 100 MG CAPSULE PO SCH ×2 (01:15→21:25)
[2017-05-23] MEDS: LEVOTHYROXINE 137 MCG TABLET PO SCH (05:38)
[2017-05-23] MEDS: PIPERACILLIN/TAZOBACTAM 3,375 MG in SODIUM CHLORIDE 0.9% 100 ML IV SCH ×3 (05:39→21:29)
[2017-05-23 06:32] LABS: Basophils % 0.2 % (0.0-0.8); Hematocrit 36.7 VOL% (35.7-47.0); Hemoglobin 12.1 GM/DL (12.0-16.0); Immature Granulocytes % 0.8 %; Immature Granulocytes Absolute 0.04 #; Lymphocytes # 0.7 10*3/uL (1.4-4.0); Lymphocytes % 15.4 % (21.3-54.2); Mean Corpuscular Hemoglobin 27 PG (27-34); Mean Corpuscular Volume 81.6 FL (87-102); Mean Platelet Volume 10.8 FL (9.6-12.0); Monocytes # 0.3 10*3/uL (0.11-0.8); Monocytes % 5.6 % (1.7-12.7); Neutrophils # 3.7 10*3/uL (1.4-7.4); Platelet Count 204 T/CUMM (130-400); Red Cell Distribution Width 14.9 % (9.3-17.3); White Blood Count 4.8 T/CUMM (4-12)
[2017-05-23 07:08] LABS: Calcium 8.2 MG/DL (8.5-10.1); Osmolality,Calculated 286.7 MOS/KG (273-304); Potassium 3.7 MMOL/L (3.5-5.1)
[2017-05-23 07:11] LABS: Albumin 2.7 G/DL (3.4-5.0); Calcium 8.3 MG/DL (8.5-10.1); Osmolality,Calculated 286.7 MOS/KG (273-304); Potassium 3.9 MMOL/L (3.5-5.1); Total Protein 5.6 G/DL (6.4-8.3)
[2017-05-23] MEDS: ATENOLOL 25 MG TABLET PO SCH (08:00)
[2017-05-23] MEDS: POTASSIUM GLUCONATE 500 MG TABLET PO SCH (08:01)
[2017-05-23] MEDS: HYDROCORTISONE 100 MG VIAL IV SCH (08:01)
[2017-05-23] MEDS: CHOLECALCIFEROL 1,000 UNIT TABLET PO SCH (08:01)
[2017-05-23] MEDS: CALCIUM (CARBONATE)/VITAMIN D 600 MG-400 UNIT TABLET PO SCH (08:10)
[2017-05-23] MEDS ORDERED: ASPIRIN EC 81 MG TABLET PO SCH (09:00)
[2017-05-23] MEDS ORDERED: MOMETASONE 50 MCG NASAL SPRAY 17 GM BOTTLE BOTH NARES PRN (10:20)
[2017-05-23] MEDS ORDERED: HYDROCORTISONE 10 MG TABLET PO SCH (10:30)
[2017-05-23] MEDS: ASPIRIN EC 81 MG TABLET PO SCH (12:21)
[2017-05-23] MEDS: BECLOMETHASONE 40 MCG/PUFF INHALER 8.7 GM INH SCH ×2 (12:28→21:34)
[2017-05-23] MEDS: VANCOMYCIN INJ 1,000 MG in SODIUM CHLORIDE 0.9% 250 ML IV SCH (17:36)
[2017-05-23] MEDS: HYDROCORTISONE 10 MG TABLET PO SCH (21:24)
[2017-05-24] MEDS: ALBUTEROL/IPRATROPIUM 3 ML NEB RESP TX SCH ×4 (00:30→19:10)
[2017-05-24] MEDS: PIPERACILLIN/TAZOBACTAM 3,375 MG in SODIUM CHLORIDE 0.9% 100 ML IV SCH ×3 (04:25→20:01)
[2017-05-24] MEDS: LEVOTHYROXINE 137 MCG TABLET PO SCH (05:55)
[2017-05-24 06:24] LABS: Basophils % 0.4 % (0.0-0.8); Hematocrit 35.7 VOL% (35.7-47.0); Hemoglobin 11.6 GM/DL (12.0-16.0); Immature Granulocytes Absolute 0.05 #; Lymphocytes # 1.3 10*3/uL (1.4-4.0); Lymphocytes % 25.1 % (21.3-54.2); Mean Corpuscular HGB Conc 32.5 GM/DL (32-36); Mean Corpuscular Hemoglobin 27 PG (27-34); Mean Corpuscular Volume 81.7 FL (87-102); Mean Platelet Volume 10.8 FL (9.6-12.0); Monocytes # 0.7 10*3/uL (0.11-0.8); Monocytes % 12.5 % (1.7-12.7); Neutrophils # 3.2 10*3/uL (1.4-7.4); Platelet Count 198 T/CUMM (130-400); Red Blood Count 4.37 MC/CUMM (3.8-5.5); Red Cell Distribution Width 14.8 % (9.3-17.3); White Blood Count 5.2 T/CUMM (4-12)
[2017-05-24 06:50] LABS: Calcium 8.5 MG/DL (8.5-10.1); Magnesium 2.1 MG/DL (1.8-2.4); Osmolality,Calculated 292.1 MOS/KG (273-304); Potassium 3.6 MMOL/L (3.5-5.1)
[2017-05-24] MEDS: HYDROCORTISONE 10 MG TABLET PO SCH ×2 (09:20→20:02)
[2017-05-24] MEDS: CALCIUM (CARBONATE)/VITAMIN D 600 MG-400 UNIT TABLET PO SCH (09:20)
[2017-05-24] MEDS: POTASSIUM GLUCONATE 500 MG TABLET PO SCH (09:20)
[2017-05-24] MEDS: BECLOMETHASONE 40 MCG/PUFF INHALER 8.7 GM INH SCH ×2 (09:20→20:02)
[2017-05-24] MEDS: ASPIRIN EC 81 MG TABLET PO SCH (09:20)
[2017-05-24] MEDS: ATENOLOL 25 MG TABLET PO SCH (09:20)
[2017-05-24] MEDS: CHOLECALCIFEROL 1,000 UNIT TABLET PO SCH (09:20)
[2017-05-24] MEDS: VANCOMYCIN INJ 1,000 MG in SODIUM CHLORIDE 0.9% 250 ML IV SCH (17:17)
[2017-05-24] MEDS: MONTELUKAST 10 MG TABLET PO SCH (20:01)
[2017-05-24] MEDS: LOVASTATIN 20 MG TABLET PO SCH (20:01)
[2017-05-24] MEDS: BENZONATATE 100 MG CAPSULE PO SCH (20:01)
[2017-05-25] MEDS: ALBUTEROL/IPRATROPIUM 3 ML NEB RESP TX SCH ×5 (00:15→23:59)
[2017-05-25 09:54] LABS: Calcium 8.5 MG/DL (8.5-10.1); Free T4 (Free Thyroxine) 1.29 NG/DL (0.76-1.46); Magnesium 1.9 MG/DL (1.8-2.4); Osmolality,Calculated 285.6 MOS/KG (273-304); Potassium 3.2 MMOL/L (3.5-5.1); Thyroid Stimulating Hormone 0.593 uIU/ml (0.358-3.74)
[2017-05-25] MEDS: PIPERACILLIN/TAZOBACTAM 3,375 MG in SODIUM CHLORIDE 0.9% 100 ML IV SCH ×3 (11:37→20:46)
[2017-05-25] MEDS: CALCIUM (CARBONATE)/VITAMIN D 600 MG-400 UNIT TABLET PO SCH (11:38)
[2017-05-25] MEDS: POTASSIUM GLUCONATE 500 MG TABLET PO SCH (11:38)
[2017-05-25] MEDS: BECLOMETHASONE 40 MCG/PUFF INHALER 8.7 GM INH SCH ×2 (11:38→20:47)
[2017-05-25] MEDS: ATENOLOL 25 MG TABLET PO SCH (11:38)
[2017-05-25] MEDS: HYDROCORTISONE 10 MG TABLET PO SCH ×2 (11:38→20:47)
[2017-05-25] MEDS: CHOLECALCIFEROL 1,000 UNIT TABLET PO SCH (11:38)
[2017-05-25] MEDS: ASPIRIN EC 81 MG TABLET PO SCH (11:38)
[2017-05-25] MEDS: LEVOTHYROXINE 137 MCG TABLET PO SCH (11:38)
[2017-05-25 12:11] LABS: Procalcitonin, S 0.15 ng/mL (<=0.15)
[2017-05-25] MEDS ORDERED: FUROSEMIDE 40 MG/4 ML VIAL IV ONE (14:14)
[2017-05-25] MEDS ORDERED: POTASSIUM CHLORIDE 20 MEQ TABLET PO ONE (15:00)
[2017-05-25] MEDS: VANCOMYCIN INJ 1,000 MG in SODIUM CHLORIDE 0.9% 250 ML IV SCH (18:47)
[2017-05-25] MEDS: BENZONATATE 100 MG CAPSULE PO SCH (20:47)
[2017-05-25] MEDS: LOVASTATIN 20 MG TABLET PO SCH (20:47)
[2017-05-25] MEDS: MONTELUKAST 10 MG TABLET PO SCH (20:47)
[2017-05-26] MEDS: LEVOTHYROXINE 137 MCG TABLET PO SCH (05:59)
[2017-05-26] MEDS ORDERED: VANCOMYCIN INJ 1,000 MG in SODIUM CHLORIDE 0.9% 250 ML IV SCH (06:00)
[2017-05-26 06:01] LABS: Basophils % 0.5 % (0.0-0.8); Hematocrit 36.9 VOL% (35.7-47.0); Immature Granulocytes % 0.5 %; Immature Granulocytes Absolute 0.02 #; Lymphocytes # 1.4 10*3/uL (1.4-4.0); Lymphocytes % 36.1 % (21.3-54.2); Mean Corpuscular HGB Conc 32.5 GM/DL (32-36); Mean Corpuscular Hemoglobin 27 PG (27-34); Mean Corpuscular Volume 81.6 FL (87-102); Mean Platelet Volume 10.9 FL (9.6-12.0); Monocytes # 0.5 10*3/uL (0.11-0.8); Monocytes % 12.1 % (1.7-12.7); Neutrophils # 1.9 10*3/uL (1.4-7.4); Neutrophils % 50.8 % (38.7-73.9); Platelet Count 213 T/CUMM (130-400); Red Blood Count 4.52 MC/CUMM (3.8-5.5); Red Cell Distribution Width 14.7 % (9.3-17.3); White Blood Count 3.8 T/CUMM (4-12)
[2017-05-26] MEDS: PIPERACILLIN/TAZOBACTAM 3,375 MG in SODIUM CHLORIDE 0.9% 100 ML IV SCH ×2 (06:02→13:15)
[2017-05-26 06:44] LABS: Calcium 8.6 MG/DL (8.5-10.1); Magnesium 1.8 MG/DL (1.8-2.4); Osmolality,Calculated 286.6 MOS/KG (273-304); Potassium 3.4 MMOL/L (3.5-5.1)
[2017-05-26 06:46] LABS: Band Neutrophils 1 % (0-10); Eosinophils 1 % (0-10); Hypochromasia 1+; Lymphocytes 26 % (20-55); Microcytosis 1+; Platelet Estimate Adequate; Segmented Neutrophils 66 % (50-85); Total Cells Counted 100
[2017-05-26] MEDS: ALBUTEROL/IPRATROPIUM 3 ML NEB RESP TX SCH ×2 (07:10→13:15)
[2017-05-26] MEDS ORDERED: FUROSEMIDE 40 MG/4 ML VIAL IV ONE (08:39)
[2017-05-26] MEDS ORDERED: POTASSIUM CHLORIDE 20 MEQ TABLET PO ONE (08:39)
[2017-05-26] MEDS: CHOLECALCIFEROL 1,000 UNIT TABLET PO SCH (09:32)
[2017-05-26] MEDS: CALCIUM (CARBONATE)/VITAMIN D 600 MG-400 UNIT TABLET PO SCH (09:32)
[2017-05-26] MEDS: POTASSIUM GLUCONATE 500 MG TABLET PO SCH (09:32)
[2017-05-26] MEDS: HYDROCORTISONE 10 MG TABLET PO SCH (09:34)
[2017-05-26] MEDS: ASPIRIN EC 81 MG TABLET PO SCH (09:34)
[2017-05-26] MEDS: ATENOLOL 25 MG TABLET PO SCH (09:38)
[2017-05-26] MEDS: BECLOMETHASONE 40 MCG/PUFF INHALER 8.7 GM INH SCH (09:39)
[2017-05-26 11:56] VITALS: BP 123/88
== END 2017-05-26 16:25 | disposition home or self-care (01) | DRG 871 ==
LOC: EDUNIT# → EDBD → N.ED 07:26 → N.EDINP 10:02 → SUATTDRO 10:02 → N.EDINP 11:38 → N.5E 12:08
PROVIDERS: ADMIT Internal Medicine; ATTEND Internal Medicine

== ENCOUNTER 2019-06-10 09:41 | Inpatient (IN) ==
[2019-06-10 10:20] LABS: Basophils # 0.1 10*3/uL (0.0-0.2); Basophils % 0.5 % (0.0-0.8); Eosinophils # 0.1 10*3/uL (0.0-0.87); Eosinophils % 1.3 % (0.00-10.9); Hematocrit 40.9 VOL% (35.7-47.0); Hemoglobin 12.8 GM/DL (12.0-16.0); Immature Granulocytes % 0.4 %; Immature Granulocytes Absolute 0.04 #; Lymphocytes # 2.9 10*3/uL (1.4-4.0); Lymphocytes % 26.3 % (21.3-54.2); Mean Corpuscular HGB Conc 31.3 GM/DL (32-36); Mean Corpuscular Volume 83.1 FL (87-102); Mean Platelet Volume 11.1 FL (9.6-12.0); Monocytes % 9.9 % (1.7-12.7); Neutrophils % 61.6 % (38.7-73.9); Platelet Count 272 T/CUMM (130-400); Red Blood Count 4.92 MC/CUMM (3.8-5.5); Red Cell Distribution Width 14.4 % (9.3-17.3); White Blood Count 11.1 T/CUMM (4-12)
[2019-06-10 10:31] LABS: Albumin 3.1 G/DL (3.4-5.0); Bilirubin,Total 1.1 MG/DL (0.2-1.0); Calcium 8.4 MG/DL (8.5-10.1); Osmolality,Calculated 275.4 MOS/KG (273-304); Total Protein 6.9 G/DL (6.4-8.3)
[2019-06-10 10:52] LABS: Apearance,Urine CLEAR (Clear); Bilirubin,Urine Negative (Negative); Blood, Urine Negative (Negative); Glucose,Urine (UA) Negative (Negative); Ketones,Urine Negative (Negative); Mucus,Urine Occasional /LPF (Occasional); Nitrite,Urine Negative (Negative); Protein,Urine Negative; RBC,Urine <1 /HPF (0-4); Squamous Epithelial Cell,Urine Occasional /HPF (0-10); Urine Color Yellow (Yellow); Urine Specific Gravity 1.015 (1.001-1.035); Urine Urobilinogen < 2.0 EU/DL (0.2-1.0)
[2019-06-10 11:25] LABS: Sedimentation Rate-Westergren 60 MM/HR (0-30)
[2019-06-10] MEDS ORDERED: cefTRIAXone 1,000 MG in SODIUM CHLORIDE 0.9% 100 ML IV STA (11:28)
[2019-06-10] MEDS ORDERED: ACETAMINOPHEN 325 MG TABLET PO PRN (12:21)
[2019-06-10] MEDS ORDERED: ONDANSETRON 4 MG/2 ML VIAL IV PRN (12:21)
[2019-06-10] MEDS ORDERED: BISACODYL 5 MG TABLET PO PRN (12:21)
[2019-06-10] MEDS ORDERED: guaiFENesin/DM ER 600-30 MG TABLET PO PRN (12:21)
[2019-06-10] MEDS ORDERED: ENOXAPARIN 40 MG/0.4 ML SYRINGE SUBCUT SCH (12:30)
[2019-06-10] MEDS ORDERED: ACETAMINOPHEN 325 MG TABLET PO ONE (12:41)
[2019-06-10] MEDS ORDERED: CETIRIZINE 10 MG TABLET PO PRN (12:41)
[2019-06-10] MEDS ORDERED: ALBUTEROL/IPRATROPIUM 3 ML NEB RESP TX PRN (12:41)
[2019-06-10 12:45] LABS: Thyroid Stimulating Hormone 0.223 uIU/ml (0.358-3.74)
[2019-06-10] MEDS: SODIUM CHLORIDE 0.9% 1,000 ML IV SCH (16:14)
[2019-06-10] MEDS ORDERED: HYDROCORTISONE 10 MG TABLET PO SCH (17:00)
[2019-06-10] MEDS ORDERED: HYDROCORTISONE 10 MG TABLET PO ONE (20:54)
[2019-06-10] MEDS ORDERED: MONTELUKAST 10 MG TABLET PO SCH (21:00)
[2019-06-11] MEDS: SODIUM CHLORIDE 0.9% 1,000 ML IV SCH ×3 (00:02→09:46)
[2019-06-11 06:21] LABS: Basophils % 0.5 % (0.0-0.8); Eosinophils # 0.1 10*3/uL (0.0-0.87); Eosinophils % 0.6 % (0.00-10.9); Hematocrit 37.3 VOL% (35.7-47.0); Hemoglobin 11.4 GM/DL (12.0-16.0); Immature Granulocytes % 0.7 %; Immature Granulocytes Absolute 0.06 #; Lymphocytes % 25.2 % (21.3-54.2); Mean Corpuscular HGB Conc 30.6 GM/DL (32-36); Mean Corpuscular Volume 84.2 FL (87-102); Mean Platelet Volume 11.2 FL (9.6-12.0); Monocytes % 12.7 % (1.7-12.7); Neutrophils % 60.3 % (38.7-73.9); Platelet Count 242 T/CUMM (130-400); Red Blood Count 4.43 MC/CUMM (3.8-5.5); Red Cell Distribution Width 14.4 % (9.3-17.3)
[2019-06-11 06:31] LABS: Calcium 8.5 MG/DL (8.5-10.1); Osmolality,Calculated 286.7 MOS/KG (273-304)
[2019-06-11] MEDS ORDERED: LEVOTHYROXINE 75 MCG TABLET PO SCH (07:00)
[2019-06-11] MEDS ORDERED: LEVOTHYROXINE 50 MCG TABLET PO SCH (07:00)
[2019-06-11] MEDS ORDERED: HYDROCORTISONE 10 MG TABLET PO SCH ×2 (08:00→10:20)
[2019-06-11 08:04] VITALS: BP 117/71
[2019-06-11] MEDS ORDERED: PANTOPRAZOLE 40 MG TABLET PO SCH (09:00)
[2019-06-11] MEDS ORDERED: ATENOLOL 25 MG TABLET PO SCH (09:00)
[2019-06-11] MEDS ORDERED: ASCORBIC ACID 500 MG TABLET PO SCH (09:00)
[2019-06-11] MEDS ORDERED: MULTIVITAMIN (CENTRUM) TABLET PO SCH (09:00)
[2019-06-11] MEDS ORDERED: CALCIUM (CARBONATE)/VITAMIN D 600 MG-400 UNIT TABLET PO SCH (09:00)
== END 2019-06-11 12:31 | disposition home or self-care (01) | DRG 202 ==
LOC: EDUNIT# → EDBD → N.ED 09:41 → N.EDINP 14:06 → N.2E 15:54
PROVIDERS: ADMIT Internal Medicine Geriatric Medicine; ATTEND Internal Medicine Geriatric Medicine

== ENCOUNTER 2019-07-07 07:10 | Inpatient (IN) ==
[2019-07-07] MEDS ORDERED: cefTRIAXone 2,000 MG in SODIUM CHLORIDE 0.9% 100 ML IV ONE (07:38)
[2019-07-07] MEDS ORDERED: ACETAMINOPHEN 500 MG TABLET PO STA (07:42)
[2019-07-07 07:52] LABS: Basophils % 0.3 % (0.0-0.8); Eosinophils # 0.1 10*3/uL (0.0-0.87); Eosinophils % 1.2 % (0.00-10.9); Hematocrit 44.8 VOL% (35.7-47.0); Immature Granulocytes % 0.4 %; Immature Granulocytes Absolute 0.03 #; Lymphocytes # 0.6 10*3/uL (1.4-4.0); Lymphocytes % 8.2 % (21.3-54.2); Mean Corpuscular HGB Conc 31.3 GM/DL (32-36); Mean Corpuscular Volume 83.4 FL (87-102); Mean Platelet Volume 10.5 FL (9.6-12.0); Monocytes % 3.8 % (1.7-12.7); Neutrophils % 86.1 % (38.7-73.9); Platelet Count 216 T/CUMM (130-400); Red Blood Count 5.37 MC/CUMM (3.8-5.5); Red Cell Distribution Width 14.4 % (9.3-17.3); White Blood Count 7.6 T/CUMM (4-12)
[2019-07-07] MEDS ORDERED: cefTRIAXone 1,000 MG VIAL ONE (07:55)
[2019-07-07 08:03] LABS: Albumin 3.3 G/DL (3.4-5.0); Bilirubin,Total 1.4 MG/DL (0.2-1.0); Calcium 8.5 MG/DL (8.5-10.1); Osmolality,Calculated 278.7 MOS/KG (273-304); Total Protein 7.6 G/DL (6.4-8.3)
[2019-07-07] MEDS ORDERED: ACETAMINOPHEN 650 MG SUPP RECTAL ONE (08:04)
[2019-07-07] MEDS ORDERED: SODIUM CHLORIDE 0.9% 1,000 ML IV STA (08:19)
[2019-07-07] MEDS ORDERED: ACETAMINOPHEN 650 MG SUPP RECTAL STA (08:23)
[2019-07-07 08:25] LABS: Apearance,Urine CLEAR (Clear); Bilirubin,Urine Negative (Negative); Blood, Urine Negative (Negative); Glucose,Urine (UA) 50 mg/dL (Negative); Ketones,Urine Negative (Negative); Nitrite,Urine Negative (Negative); Protein,Urine Negative; RBC,Urine 2 /HPF (0-4); Squamous Epithelial Cell,Urine Occasional /HPF (0-10); Urine Color Yellow (Yellow); Urine Specific Gravity 1.012 (1.001-1.035); Urine Urobilinogen < 2.0 EU/DL (0.2-1.0); WBC,Urine 2 /HPF (0-6)
[2019-07-07] MEDS ORDERED: VANCOMYCIN INJ 1,500 MG in SODIUM CHLORIDE 0.9% 500 ML IV STA (08:29)
[2019-07-07] MEDS ORDERED: HYDROCORTISONE 100 MG VIAL IV STA (08:34)
[2019-07-07 08:56] LABS: Sedimentation Rate-Westergren 20 MM/HR (0-30)
[2019-07-07] MEDS ORDERED: SODIUM CHLORIDE 0.9% 2,100 ML IV ONE (09:31)
[2019-07-07] MEDS ORDERED: ACETAMINOPHEN 325 MG TABLET PO PRN (09:31)
[2019-07-07] MEDS ORDERED: guaiFENesin/DM ER 600-30 MG TABLET PO PRN (09:31)
[2019-07-07] MEDS ORDERED: ONDANSETRON 4 MG/2 ML VIAL IV PRN (09:31)
[2019-07-07] MEDS ORDERED: SODIUM CHLORIDE 0.9% 1,000 ML IV SCH (10:00)
[2019-07-07] MEDS ORDERED: ALBUTEROL 2.5 MG/3 ML NEB RESP TX PRN (10:09)
[2019-07-07] MEDS: PIPERACILLIN/TAZOBACTAM 3,375 MG in SODIUM CHLORIDE 0.9% 100 ML IV SCH ×2 (10:37→18:01)
[2019-07-07] MEDS: ENOXAPARIN 40 MG/0.4 ML SYRINGE SUBCUT SCH (10:37)
[2019-07-07] MEDS: LEVOFLOXACIN INJ 750 MG in PREMIX 1 EACH IV SCH (12:01)
[2019-07-07] MEDS: DEXTROSE 5% NACL 0.9% 1,000 ML IV SCH ×2 (15:00→21:45)
[2019-07-07] MEDS: HYDROCORTISONE 100 MG VIAL IV SCH (17:59)
[2019-07-07] MEDS: VANCOMYCIN INJ 1,000 MG in SODIUM CHLORIDE 0.9% 250 ML IV SCH (20:51)
[2019-07-08] MEDS: DEXTROSE 5% NACL 0.9% 1,000 ML IV SCH ×2 (00:51→05:41)
[2019-07-08] MEDS: HYDROCORTISONE 100 MG VIAL IV SCH ×3 (00:52→17:04)
[2019-07-08] MEDS: PIPERACILLIN/TAZOBACTAM 3,375 MG in SODIUM CHLORIDE 0.9% 100 ML IV SCH ×3 (01:05→17:05)
[2019-07-08 04:50] LABS: Basophils % 0.2 % (0.0-0.8); Hematocrit 37.8 VOL% (35.7-47.0); Hemoglobin 11.6 GM/DL (12.0-16.0); Immature Granulocytes % 1.3 %; Immature Granulocytes Absolute 0.07 #; Lymphocytes # 0.8 10*3/uL (1.4-4.0); Mean Corpuscular HGB Conc 30.7 GM/DL (32-36); Mean Corpuscular Volume 84.2 FL (87-102); Mean Platelet Volume 10.7 FL (9.6-12.0); Neutrophils % 82.5 % (38.7-73.9); Platelet Count 202 T/CUMM (130-400); Red Blood Count 4.49 MC/CUMM (3.8-5.5); Red Cell Distribution Width 14.6 % (9.3-17.3); White Blood Count 5.6 T/CUMM (4-12)
[2019-07-08 05:24] LABS: Albumin 2.6 G/DL (3.4-5.0); Bilirubin,Total 1.2 MG/DL (0.2-1.0); Calcium 7.1 MG/DL (8.5-10.1); Osmolality,Calculated 291.6 MOS/KG (273-304); Thyroid Stimulating Hormone 0.054 uIU/ml (0.358-3.74); Total Protein 6.2 G/DL (6.4-8.3)
[2019-07-08] MEDS ORDERED: ALBUTEROL/IPRATROPIUM 3 ML NEB RESP TX PRN (08:43)
[2019-07-08] MEDS ORDERED: MAGNESIUM SULF RIDER 4 GM in PREMIX 1 EACH IV PRN (08:43)
[2019-07-08] MEDS ORDERED: MAGNESIUM SULF RIDER 2 GM in PREMIX 1 EACH IV PRN (08:43)
[2019-07-08] MEDS ORDERED: HYDROCORTISONE 10 MG TABLET PO SCH ×2 (09:00→17:00)
[2019-07-08] MEDS: VANCOMYCIN INJ 1,000 MG in SODIUM CHLORIDE 0.9% 250 ML IV SCH ×2 (09:16→21:36)
[2019-07-08] MEDS: LEVOFLOXACIN INJ 750 MG in PREMIX 1 EACH IV SCH (09:17)
[2019-07-08] MEDS: ASPIRIN EC 81 MG TABLET PO SCH (09:18)
[2019-07-08] MEDS: ATENOLOL 25 MG TABLET PO SCH (09:18)
[2019-07-08] MEDS: ENOXAPARIN 40 MG/0.4 ML SYRINGE SUBCUT SCH (09:18)
[2019-07-08] MEDS: ASCORBIC ACID 500 MG TABLET PO SCH (09:19)
[2019-07-08] MEDS: prednisoLONE ACETATE 1% OPH SUSP 5 ML BOTTLE BOTH EYES SCH ×4 (09:19→21:33)
[2019-07-08] MEDS: CYCLOPENTOLATE 1% OPH SOLN 2 ML BOTTLE LEFT EYE SCH ×3 (09:19→21:33)
[2019-07-08] MEDS: CALCIUM (CARBONATE)/VITAMIN D 600 MG-400 UNIT TABLET PO SCH (09:30)
[2019-07-08] MEDS: MULTIVITAMIN (CENTRUM) TABLET PO SCH (09:30)
[2019-07-08] MEDS: DEXTROSE 5% NACL 0.45% 1,000 ML IV SCH (13:46)
[2019-07-08] MEDS ORDERED: MELATONIN 3 MG TABLET PO PRN (18:57)
[2019-07-08] MEDS: SIMVASTATIN 20 MG TABLET PO SCH (21:32)
[2019-07-08] MEDS: MONTELUKAST 10 MG TABLET PO SCH (21:32)
[2019-07-09] MEDS: HYDROCORTISONE 100 MG VIAL IV SCH (00:26)
[2019-07-09] MEDS: PIPERACILLIN/TAZOBACTAM 3,375 MG in SODIUM CHLORIDE 0.9% 100 ML IV SCH ×2 (02:56→10:11)
[2019-07-09] MEDS: DEXTROSE 5% NACL 0.45% 1,000 ML IV SCH (03:00)
[2019-07-09] MEDS: LEVOTHYROXINE 75 MCG TABLET PO SCH (05:34)
[2019-07-09 06:17] LABS: Basophils % 0.3 % (0.0-0.8); Hematocrit 37.5 VOL% (35.7-47.0); Hemoglobin 11.7 GM/DL (12.0-16.0); Immature Granulocytes % 2.5 %; Immature Granulocytes Absolute 0.18 #; Lymphocytes # 1.1 10*3/uL (1.4-4.0); Lymphocytes % 14.9 % (21.3-54.2); Mean Corpuscular HGB Conc 31.2 GM/DL (32-36); Mean Corpuscular Volume 83.3 FL (87-102); Mean Platelet Volume 11.2 FL (9.6-12.0); Neutrophils % 75.3 % (38.7-73.9); Platelet Count 195 T/CUMM (130-400); Red Cell Distribution Width 14.6 % (9.3-17.3); White Blood Count 7.1 T/CUMM (4-12)
[2019-07-09 06:33] LABS: Calcium 7.6 MG/DL (8.5-10.1); Osmolality,Calculated 284.8 MOS/KG (273-304)
[2019-07-09] MEDS: CYCLOPENTOLATE 1% OPH SOLN 2 ML BOTTLE LEFT EYE SCH ×3 (08:44→21:03)
[2019-07-09] MEDS: ASPIRIN EC 81 MG TABLET PO SCH (08:44)
[2019-07-09] MEDS: ATENOLOL 25 MG TABLET PO SCH (08:44)
[2019-07-09] MEDS: MULTIVITAMIN (CENTRUM) TABLET PO SCH (08:44)
[2019-07-09] MEDS: prednisoLONE ACETATE 1% OPH SUSP 5 ML BOTTLE BOTH EYES SCH ×4 (08:44→21:03)
[2019-07-09] MEDS: CALCIUM (CARBONATE)/VITAMIN D 600 MG-400 UNIT TABLET PO SCH (08:44)
[2019-07-09] MEDS: ASCORBIC ACID 500 MG TABLET PO SCH (08:44)
[2019-07-09] MEDS: VANCOMYCIN INJ 1,000 MG in SODIUM CHLORIDE 0.9% 250 ML IV SCH ×2 (08:44→21:03)
[2019-07-09] MEDS: HYDROCORTISONE 10 MG TABLET PO SCH ×2 (08:44→18:41)
[2019-07-09] MEDS: POTASSIUM CHLORIDE 20 MEQ TABLET PO PRN ×4 (08:47→14:55)
[2019-07-09] MEDS: ENOXAPARIN 40 MG/0.4 ML SYRINGE SUBCUT SCH (10:09)
[2019-07-09] MEDS: LEVOFLOXACIN INJ 750 MG in PREMIX 1 EACH IV SCH (10:09)
[2019-07-09] MEDS: SIMVASTATIN 20 MG TABLET PO SCH (21:02)
[2019-07-09] MEDS: MONTELUKAST 10 MG TABLET PO SCH (21:02)
[2019-07-09] MEDS: CYPROHEPTADINE 4 MG TABLET PO SCH (21:03)
[2019-07-10] MEDS: LEVOTHYROXINE 75 MCG TABLET PO SCH (05:47)
[2019-07-10 06:28] LABS: Calcium 7.6 MG/DL (8.5-10.1); Osmolality,Calculated 285.6 MOS/KG (273-304)
[2019-07-10] MEDS: CALCIUM (CARBONATE)/VITAMIN D 600 MG-400 UNIT TABLET PO SCH (09:33)
[2019-07-10] MEDS: ENOXAPARIN 40 MG/0.4 ML SYRINGE SUBCUT SCH (09:33)
[2019-07-10] MEDS: ASCORBIC ACID 500 MG TABLET PO SCH (09:33)
[2019-07-10] MEDS: CYPROHEPTADINE 4 MG TABLET PO SCH ×3 (09:33→20:37)
[2019-07-10] MEDS: MULTIVITAMIN (CENTRUM) TABLET PO SCH (09:33)
[2019-07-10] MEDS: CHOLECALCIFEROL 1,000 UNIT TABLET PO SCH (09:33)
[2019-07-10] MEDS: LEVOFLOXACIN INJ 750 MG in PREMIX 1 EACH IV SCH (09:34)
[2019-07-10] MEDS: HYDROCORTISONE 10 MG TABLET PO SCH ×2 (09:34→18:27)
[2019-07-10] MEDS: ASPIRIN EC 81 MG TABLET PO SCH (09:34)
[2019-07-10] MEDS: ATENOLOL 25 MG TABLET PO SCH (09:34)
[2019-07-10] MEDS: CYCLOPENTOLATE 1% OPH SOLN 2 ML BOTTLE LEFT EYE SCH ×3 (09:35→20:38)
[2019-07-10] MEDS: prednisoLONE ACETATE 1% OPH SUSP 5 ML BOTTLE BOTH EYES SCH ×4 (09:36→20:38)
[2019-07-10] MEDS: VANCOMYCIN INJ 1,000 MG in SODIUM CHLORIDE 0.9% 250 ML IV SCH (14:48)
[2019-07-10] MEDS: POTASSIUM CHLORIDE 20 MEQ TABLET PO SCH ×2 (14:51→20:37)
[2019-07-10] MEDS: MONTELUKAST 10 MG TABLET PO SCH (20:37)
[2019-07-10] MEDS: SIMVASTATIN 20 MG TABLET PO SCH (20:37)
[2019-07-11] MEDS: LEVOTHYROXINE 75 MCG TABLET PO SCH (06:12)
[2019-07-11] MEDS: LEVOFLOXACIN INJ 750 MG in PREMIX 1 EACH IV SCH (09:29)
[2019-07-11] MEDS: CHOLECALCIFEROL 1,000 UNIT TABLET PO SCH (09:30)
[2019-07-11] MEDS: POTASSIUM CHLORIDE 20 MEQ TABLET PO SCH ×2 (09:30→21:59)
[2019-07-11] MEDS: HYDROCORTISONE 10 MG TABLET PO SCH ×2 (09:30→18:18)
[2019-07-11] MEDS: MULTIVITAMIN (CENTRUM) TABLET PO SCH (09:31)
[2019-07-11] MEDS: ASPIRIN EC 81 MG TABLET PO SCH (09:31)
[2019-07-11] MEDS: CYPROHEPTADINE 4 MG TABLET PO SCH ×3 (09:31→21:59)
[2019-07-11] MEDS: CALCIUM (CARBONATE)/VITAMIN D 600 MG-400 UNIT TABLET PO SCH (09:31)
[2019-07-11] MEDS: ATENOLOL 25 MG TABLET PO SCH (09:31)
[2019-07-11] MEDS: ASCORBIC ACID 500 MG TABLET PO SCH (09:31)
[2019-07-11] MEDS: prednisoLONE ACETATE 1% OPH SUSP 5 ML BOTTLE BOTH EYES SCH ×4 (09:32→21:59)
[2019-07-11] MEDS: CYCLOPENTOLATE 1% OPH SOLN 2 ML BOTTLE LEFT EYE SCH ×3 (09:32→21:59)
[2019-07-11] MEDS: VANCOMYCIN INJ 1,000 MG in SODIUM CHLORIDE 0.9% 250 ML IV SCH (10:50)
[2019-07-11] MEDS: ENOXAPARIN 40 MG/0.4 ML SYRINGE SUBCUT SCH (10:51)
[2019-07-11] MEDS: FLUCONAZOLE 200 MG TABLET PO SCH (16:34)
[2019-07-11] MEDS: MONTELUKAST 10 MG TABLET PO SCH (21:58)
[2019-07-11] MEDS: SIMVASTATIN 20 MG TABLET PO SCH (21:59)
[2019-07-12] MEDS: VANCOMYCIN INJ 1,000 MG in SODIUM CHLORIDE 0.9% 250 ML IV SCH (03:40)
[2019-07-12 05:06] LABS: Calcium 8.4 MG/DL (8.5-10.1); Osmolality,Calculated 284.7 MOS/KG (273-304)
[2019-07-12] MEDS: LEVOTHYROXINE 75 MCG TABLET PO SCH (07:00)
[2019-07-12] MEDS: ASPIRIN EC 81 MG TABLET PO SCH (09:33)
[2019-07-12] MEDS: MULTIVITAMIN (CENTRUM) TABLET PO SCH (09:34)
[2019-07-12] MEDS: ASCORBIC ACID 500 MG TABLET PO SCH (09:34)
[2019-07-12] MEDS: CHOLECALCIFEROL 1,000 UNIT TABLET PO SCH (09:34)
[2019-07-12] MEDS: ATENOLOL 25 MG TABLET PO SCH (09:35)
[2019-07-12] MEDS: FLUCONAZOLE 200 MG TABLET PO SCH (09:35)
[2019-07-12] MEDS: CYPROHEPTADINE 4 MG TABLET PO SCH ×3 (09:35→22:08)
[2019-07-12] MEDS: ENOXAPARIN 40 MG/0.4 ML SYRINGE SUBCUT SCH (09:36)
[2019-07-12] MEDS: CALCIUM (CARBONATE)/VITAMIN D 600 MG-400 UNIT TABLET PO SCH (09:37)
[2019-07-12] MEDS: HYDROCORTISONE 10 MG TABLET PO SCH ×2 (09:38→22:11)
[2019-07-12] MEDS: prednisoLONE ACETATE 1% OPH SUSP 5 ML BOTTLE BOTH EYES SCH ×4 (09:39→22:07)
[2019-07-12] MEDS: CYCLOPENTOLATE 1% OPH SOLN 2 ML BOTTLE LEFT EYE SCH ×3 (09:40→22:07)
[2019-07-12] MEDS: LEVOFLOXACIN INJ 750 MG in PREMIX 1 EACH IV SCH (09:41)
[2019-07-12] MEDS: POTASSIUM CHLORIDE 20 MEQ TABLET PO SCH (09:41)
[2019-07-12] MEDS: SIMVASTATIN 20 MG TABLET PO SCH (22:07)
[2019-07-12] MEDS: MONTELUKAST 10 MG TABLET PO SCH (22:08)
[2019-07-13] MEDS: VANCOMYCIN INJ 1,000 MG in SODIUM CHLORIDE 0.9% 250 ML IV SCH (02:12)
[2019-07-13 06:55] LABS: Calcium 8.8 MG/DL (8.5-10.1); Osmolality,Calculated 279.1 MOS/KG (273-304)
[2019-07-13] MEDS: LEVOTHYROXINE 75 MCG TABLET PO SCH (07:32)
[2019-07-13] MEDS: ATENOLOL 25 MG TABLET PO SCH (09:35)
[2019-07-13] MEDS: prednisoLONE ACETATE 1% OPH SUSP 5 ML BOTTLE BOTH EYES SCH ×2 (09:36→13:42)
[2019-07-13] MEDS: ASCORBIC ACID 500 MG TABLET PO SCH (09:37)
[2019-07-13] MEDS: ENOXAPARIN 40 MG/0.4 ML SYRINGE SUBCUT SCH (09:37)
[2019-07-13] MEDS: CYCLOPENTOLATE 1% OPH SOLN 2 ML BOTTLE LEFT EYE SCH (09:37)
[2019-07-13] MEDS: ASPIRIN EC 81 MG TABLET PO SCH (09:38)
[2019-07-13] MEDS: CALCIUM (CARBONATE)/VITAMIN D 600 MG-400 UNIT TABLET PO SCH (09:38)
[2019-07-13] MEDS: CYPROHEPTADINE 4 MG TABLET PO SCH (09:39)
[2019-07-13] MEDS: CHOLECALCIFEROL 1,000 UNIT TABLET PO SCH (09:39)
[2019-07-13] MEDS: MULTIVITAMIN (CENTRUM) TABLET PO SCH (09:40)
[2019-07-13] MEDS: LEVOFLOXACIN INJ 750 MG in PREMIX 1 EACH IV SCH (09:41)
[2019-07-13] MEDS: HYDROCORTISONE 10 MG TABLET PO SCH (10:05)
[2019-07-13] MEDS: FLUCONAZOLE 200 MG TABLET PO SCH (10:05)
[2019-07-13 13:05] VITALS: BP 147/102
== END 2019-07-13 14:05 | disposition home or self-care (01) | DRG 871 ==
LOC: EDBD → EDUNIT# → N.ED 07:10 → N.EDINP 09:33 → N.TELES 12:20
PROVIDERS: ADMIT Hospitalist; ATTEND Hospitalist

== ENCOUNTER 2019-10-27 22:55 | Inpatient (IN) ==
[2019-10-27] MEDS ORDERED: SODIUM CHLORIDE 0.9% 1,000 ML IV STA (23:28)
[2019-10-27 23:55] LABS: Basophils % 0.2 % (0.0-0.8); Eosinophils # 0.1 10*3/uL (0.0-0.87); Eosinophils % 0.6 % (0.00-10.9); Hematocrit 42.6 VOL% (35.7-47.0); Hemoglobin 13.4 GM/DL (12.0-16.0); Immature Granulocytes % 0.5 %; Immature Granulocytes Absolute 0.07 #; Lymphocytes # 2.4 10*3/uL (1.4-4.0); Lymphocytes % 16.6 % (21.3-54.2); Mean Corpuscular HGB Conc 31.5 GM/DL (32-36); Mean Corpuscular Volume 83.4 FL (87-102); Mean Platelet Volume 10.4 FL (9.6-12.0); Neutrophils % 75.1 % (38.7-73.9); Platelet Count 263 T/CUMM (130-400); Red Blood Count 5.11 MC/CUMM (3.8-5.5); Red Cell Distribution Width 14.5 % (9.3-17.3); White Blood Count 14.4 T/CUMM (4-12)
[2019-10-28 00:08] LABS: Albumin 3.5 G/DL (3.4-5.0); Bilirubin,Total 1.1 MG/DL (0.2-1.0); Calcium 8.8 MG/DL (8.5-10.1); Osmolality,Calculated 276.5 MOS/KG (273-304); Total Protein 7.6 G/DL (6.4-8.3)
[2019-10-28] MEDS ORDERED: ACETAMINOPHEN 650 MG SUPP RECTAL STA (00:13)
[2019-10-28] MEDS ORDERED: HYDROCORTISONE 100 MG VIAL IV STA (00:29)
[2019-10-28 00:55] LABS: Apearance,Urine CLEAR (Clear); Bilirubin,Urine Negative (Negative); Blood, Urine Negative (Negative); Glucose,Urine (UA) Negative (Negative); Ketones,Urine Negative (Negative); Nitrite,Urine Negative (Negative); Protein,Urine Negative; RBC,Urine <1 /HPF (0-4); Urine Color Yellow (Yellow); Urine Specific Gravity 1.012 (1.001-1.035); WBC,Urine <1 /HPF (0-6)
[2019-10-28] MEDS ORDERED: SODIUM CHLORIDE 0.9% 1,000 ML IV STA (03:06)
[2019-10-28] MEDS ORDERED: ACETAMINOPHEN 325 MG TABLET PO PRN (07:21)
[2019-10-28] MEDS ORDERED: IBUPROFEN 600 MG TABLET PO PRN (07:21)
[2019-10-28] MEDS ORDERED: ONDANSETRON 4 MG/2 ML VIAL IV PRN (07:21)
[2019-10-28] MEDS: HYDROCORTISONE 100 MG VIAL IV SCH ×3 (08:40→22:40)
[2019-10-28] MEDS: ENOXAPARIN 40 MG/0.4 ML SYRINGE SUBCUT SCH (08:41)
[2019-10-28] MEDS: CEFEPIME 1,000 MG in SODIUM CHLORIDE 0.9% 100 ML IV SCH ×3 (08:41→23:55)
[2019-10-28] MEDS: AZITHROMYCIN 250 MG TABLET PO SCH (08:41)
[2019-10-28] MEDS: SODIUM CHLORIDE 0.9% 1,000 ML IV SCH (09:35)
[2019-10-28] MEDS: VANCOMYCIN INJ 1,250 MG in SODIUM CHLORIDE 0.9% 250 ML IV SCH (12:28)
[2019-10-28] MEDS: prednisoLONE ACETATE 1% OPH SUSP 5 ML BOTTLE BOTH EYES SCH ×2 (16:08→22:40)
[2019-10-28] MEDS: CYCLOPENTOLATE 1% OPH SOLN 2 ML BOTTLE LEFT EYE SCH ×2 (16:08→22:40)
[2019-10-28] MEDS: SIMVASTATIN 20 MG TABLET PO SCH (22:39)
[2019-10-28] MEDS: MONTELUKAST 10 MG TABLET PO SCH (22:39)
[2019-10-29] MEDS: SODIUM CHLORIDE 0.9% 1,000 ML IV SCH ×2 (00:26→17:24)
[2019-10-29] MEDS: HYDROCORTISONE 100 MG VIAL IV SCH ×4 (03:05→21:45)
[2019-10-29] MEDS: VANCOMYCIN INJ 1,250 MG in SODIUM CHLORIDE 0.9% 250 ML IV SCH ×2 (03:50→23:03)
[2019-10-29 04:51] LABS: Basophils % 0.1 % (0.0-0.8); Hematocrit 37.9 VOL% (35.7-47.0); Hemoglobin 11.8 GM/DL (12.0-16.0); Immature Granulocytes % 0.8 %; Immature Granulocytes Absolute 0.14 #; Lymphocytes # 1.1 10*3/uL (1.4-4.0); Lymphocytes % 5.9 % (21.3-54.2); Mean Corpuscular HGB Conc 31.1 GM/DL (32-36); Mean Corpuscular Volume 82.6 FL (87-102); Mean Platelet Volume 11.8 FL (9.6-12.0); Monocytes % 3.1 % (1.7-12.7); Neutrophils % 90.1 % (38.7-73.9); Platelet Count 251 T/CUMM (130-400); Red Blood Count 4.59 MC/CUMM (3.8-5.5); Red Cell Distribution Width 14.8 % (9.3-17.3); White Blood Count 17.7 T/CUMM (4-12)
[2019-10-29 05:20] LABS: Osmolality,Calculated 284.1 MOS/KG (273-304); Thyroid Stimulating Hormone 0.474 uIU/ml (0.358-3.74)
[2019-10-29] MEDS: LEVOTHYROXINE 50 MCG TABLET PO SCH (05:40)
[2019-10-29] MEDS: ASCORBIC ACID 500 MG TABLET PO SCH (08:40)
[2019-10-29] MEDS: CALCIUM (CARBONATE)/VITAMIN D 600 MG-400 UNIT TABLET PO SCH (08:40)
[2019-10-29] MEDS: MELOXICAM 7.5 MG TABLET PO SCH (08:40)
[2019-10-29] MEDS: atenoloL 25 MG TABLET PO SCH (08:41)
[2019-10-29] MEDS: ENOXAPARIN 40 MG/0.4 ML SYRINGE SUBCUT SCH (08:41)
[2019-10-29] MEDS: ASPIRIN EC 81 MG TABLET PO SCH (08:41)
[2019-10-29] MEDS: MULTIVITAMIN (CENTRUM) TABLET PO SCH (08:41)
[2019-10-29] MEDS: AZITHROMYCIN 250 MG TABLET PO SCH (08:41)
[2019-10-29] MEDS: TRIAMTERENE/HCTZ 37.5-25 MG TABLET PO SCH (08:41)
[2019-10-29] MEDS: CEFEPIME 1,000 MG in SODIUM CHLORIDE 0.9% 100 ML IV SCH ×2 (08:42→16:33)
[2019-10-29] MEDS: CYCLOPENTOLATE 1% OPH SOLN 2 ML BOTTLE LEFT EYE SCH ×3 (08:42→21:48)
[2019-10-29] MEDS: prednisoLONE ACETATE 1% OPH SUSP 5 ML BOTTLE BOTH EYES SCH ×4 (08:43→21:52)
[2019-10-29] MEDS ORDERED: LACTULOSE 20 GM/30 ML UDCUP PO PRN (09:18)
[2019-10-29] MEDS ORDERED: POLYVINYL ALCOHOL 1.4% OPH SOLN 15 ML BOTTLE BOTH EYES PRN (09:52)
[2019-10-29] MEDS: DOCUSATE SODIUM 100 MG CAPSULE PO SCH (21:48)
[2019-10-29] MEDS: SIMVASTATIN 20 MG TABLET PO SCH (21:48)
[2019-10-29] MEDS: MONTELUKAST 10 MG TABLET PO SCH (21:48)
[2019-10-30] MEDS: CEFEPIME 1,000 MG in SODIUM CHLORIDE 0.9% 100 ML IV SCH ×3 (00:02→18:44)
[2019-10-30] MEDS: LEVOTHYROXINE 50 MCG TABLET PO SCH (05:50)
[2019-10-30 06:29] LABS: Basophils % 0.2 % (0.0-0.8); Hematocrit 34.6 VOL% (35.7-47.0); Hemoglobin 11.1 GM/DL (12.0-16.0); Immature Granulocytes % 1.1 %; Immature Granulocytes Absolute 0.14 #; Lymphocytes # 1.2 10*3/uL (1.4-4.0); Lymphocytes % 9.5 % (21.3-54.2); Mean Corpuscular HGB Conc 32.1 GM/DL (32-36); Mean Corpuscular Volume 81.6 FL (87-102); Mean Platelet Volume 11.5 FL (9.6-12.0); Monocytes % 5.8 % (1.7-12.7); Neutrophils % 83.4 % (38.7-73.9); Platelet Count 231 T/CUMM (130-400); Red Blood Count 4.24 MC/CUMM (3.8-5.5); Red Cell Distribution Width 14.7 % (9.3-17.3); White Blood Count 12.4 T/CUMM (4-12)
[2019-10-30 06:51] LABS: Calcium 8.2 MG/DL (8.5-10.1); Osmolality,Calculated 287.8 MOS/KG (273-304)
[2019-10-30] MEDS: DOCUSATE SODIUM 100 MG CAPSULE PO SCH ×3 (09:09→20:40)
[2019-10-30] MEDS: TRIAMTERENE/HCTZ 37.5-25 MG TABLET PO SCH (09:09)
[2019-10-30] MEDS: CALCIUM (CARBONATE)/VITAMIN D 600 MG-400 UNIT TABLET PO SCH (09:09)
[2019-10-30] MEDS: ASCORBIC ACID 500 MG TABLET PO SCH (09:09)
[2019-10-30] MEDS: ASPIRIN EC 81 MG TABLET PO SCH (09:09)
[2019-10-30] MEDS: AZITHROMYCIN 250 MG TABLET PO SCH (09:09)
[2019-10-30] MEDS: MELOXICAM 7.5 MG TABLET PO SCH (09:10)
[2019-10-30] MEDS: MULTIVITAMIN (CENTRUM) TABLET PO SCH (09:10)
[2019-10-30] MEDS: atenoloL 25 MG TABLET PO SCH (09:10)
[2019-10-30] MEDS: ENOXAPARIN 40 MG/0.4 ML SYRINGE SUBCUT SCH (09:11)
[2019-10-30] MEDS: CYCLOPENTOLATE 1% OPH SOLN 2 ML BOTTLE LEFT EYE SCH ×3 (09:11→20:40)
[2019-10-30] MEDS: POLYETHYLENE GLYCOL POWDER 17 GM PACK PO SCH ×2 (09:11→11:12)
[2019-10-30] MEDS: HYDROCORTISONE 100 MG VIAL IV SCH ×2 (09:11→20:40)
[2019-10-30] MEDS: prednisoLONE ACETATE 1% OPH SUSP 5 ML BOTTLE BOTH EYES SCH ×4 (09:11→20:40)
[2019-10-30] MEDS ORDERED: POTASSIUM CHLORIDE 20 MEQ TABLET PO ONE (12:00)
[2019-10-30] MEDS: VANCOMYCIN INJ 1,250 MG in SODIUM CHLORIDE 0.9% 250 ML IV SCH (15:16)
[2019-10-30] MEDS: MONTELUKAST 10 MG TABLET PO SCH (20:40)
[2019-10-30] MEDS: SIMVASTATIN 20 MG TABLET PO SCH (20:40)
[2019-10-31] MEDS: CEFEPIME 1,000 MG in SODIUM CHLORIDE 0.9% 100 ML IV SCH ×2 (00:35→09:50)
[2019-10-31 05:49] LABS: Basophils % 0.2 % (0.0-0.8); Eosinophils % 0.1 % (0.00-10.9); Hematocrit 36.8 VOL% (35.7-47.0); Hemoglobin 11.3 GM/DL (12.0-16.0); Immature Granulocytes % 1.4 %; Immature Granulocytes Absolute 0.13 #; Lymphocytes # 1.7 10*3/uL (1.4-4.0); Lymphocytes % 18.7 % (21.3-54.2); Mean Corpuscular HGB Conc 30.7 GM/DL (32-36); Mean Corpuscular Volume 83.4 FL (87-102); Mean Platelet Volume 11.1 FL (9.6-12.0); Monocytes % 8.7 % (1.7-12.7); Neutrophils % 70.9 % (38.7-73.9); Platelet Count 271 T/CUMM (130-400); Red Blood Count 4.41 MC/CUMM (3.8-5.5); Red Cell Distribution Width 14.6 % (9.3-17.3)
[2019-10-31] MEDS: LEVOTHYROXINE 50 MCG TABLET PO SCH (06:00)
[2019-10-31 06:08] LABS: Calcium 8.6 MG/DL (8.5-10.1); Osmolality,Calculated 285.8 MOS/KG (273-304)
[2019-10-31] MEDS: atenoloL 25 MG TABLET PO SCH (09:49)
[2019-10-31] MEDS: TRIAMTERENE/HCTZ 37.5-25 MG TABLET PO SCH (09:49)
[2019-10-31] MEDS: MULTIVITAMIN (CENTRUM) TABLET PO SCH (09:49)
[2019-10-31] MEDS: ASCORBIC ACID 500 MG TABLET PO SCH (09:49)
[2019-10-31] MEDS: CALCIUM (CARBONATE)/VITAMIN D 600 MG-400 UNIT TABLET PO SCH (09:49)
[2019-10-31] MEDS: MELOXICAM 7.5 MG TABLET PO SCH (09:49)
[2019-10-31] MEDS: DOCUSATE SODIUM 100 MG CAPSULE PO SCH (09:49)
[2019-10-31] MEDS: ENOXAPARIN 40 MG/0.4 ML SYRINGE SUBCUT SCH (09:50)
[2019-10-31] MEDS: CYCLOPENTOLATE 1% OPH SOLN 2 ML BOTTLE LEFT EYE SCH (09:51)
[2019-10-31] MEDS: HYDROCORTISONE 100 MG VIAL IV SCH (09:51)
[2019-10-31] MEDS: prednisoLONE ACETATE 1% OPH SUSP 5 ML BOTTLE BOTH EYES SCH ×2 (09:51→12:30)
[2019-10-31] MEDS: POLYETHYLENE GLYCOL POWDER 17 GM PACK PO SCH (10:04)
[2019-10-31] MEDS: AZITHROMYCIN 250 MG TABLET PO SCH (10:09)
[2019-10-31] MEDS: ASPIRIN EC 81 MG TABLET PO SCH (10:09)
[2019-10-31] MEDS ORDERED: POTASSIUM CHLORIDE 20 MEQ TABLET PO ONE (12:00)
[2019-10-31] MEDS: VANCOMYCIN INJ 1,250 MG in SODIUM CHLORIDE 0.9% 250 ML IV SCH (12:31)
[2019-10-31 13:37] VITALS: BP 131/87
== END 2019-10-31 15:44 | disposition home or self-care (01) | DRG 864 ==
LOC: EDUNIT# → EDBD → N.ED 22:55 → N.EDINP 10-28 04:19 → SUATTDRO 10-28 04:19 → N.2E 10-28 04:52
PROVIDERS: ADMIT Internal Medicine; ATTEND Family Medicine